=== PATIENT | male | born 1955 | race Caucasian/White ===

== ENCOUNTER 2018-12-27 18:29 | Emergency (ER) | payer MEDICARE, OTHER ==
[~2018-12-27] VITALS: Ht 160 cm; Wt 67.1 kg
--- NOTE | 2018-12-27 18:35 | NUR ---
Note treasurekeena in EDM - 12/27/18 at 1920 by DELMI Pt transferred to [place] [address] via [email or web address]. Pt is alert and answering questions appropriately. Family have left with pt guilelrmo. Family will drive to [place] to meet pt there.
--- NOTE | 2018-12-27 18:45 | ED Headache ---
General Stated Complaint: MIGRAINE Source: patient History of Present Illness Date Seen by Provider: Dec 27, 2018 Time Seen by Provider: 18:45 Initial Comments 63 yo M presenting with migraine headache that has been present since 6 am. He reports daily headaches but not every day does it get as severe as a Migraine. He does have Photosensitivity and phonophobia. He denies vomiting but states he has nausea that is controlled with phenergan he takes at home. He has medicine he takes at home for daily headaches but it is not helping his Migraine headache today. he reports when his headaches get this bad he usually has to come to clinic, UC or ED to get shots. He reports having to do this is a couple times a month usually. And then every few months or so he has to come to the ER for narcotic shot as well to help with a really severe migraine headache. He states that he seen neurology several times was as well as migraine specialist but is never found any different medications or management of his symptoms to control his headaches and migraines. He has a family history of migraine headaches as well. He feels that his headache today is a migraine headache for him and is a sharp stabbing pain primarily to the top of his head and some to the right occiput area. He denies having any fever or chills. He's had no neck pain. He also denies any other illness symptoms or abnormal symptoms about side of his typical migraine headache issues. Severity/Quality: constant, stabbing Prior Headaches/Recent Trauma: chronic headaches Modifying Factors: worse with exposure to light Associated Symptoms: No confusion; fatigue; No facial pain, No fever/chills, No flushing, No loss of consciousness; nausea/vomiting (nausea but no vomiting) ; No nasal congestion, No nasal drainage, No numbness in legs/feet, No rash, No seizures, No sinus infection, No stiff neck, No vision changes, No weakness Allergies and Home Medications Allergies Coded Allergies: topiramate (Verified Allergy, Unknown, 12/27/18) acetaminophen (Unverified Adverse Reaction, Mild, rash, 12/27/18) codeine (Unverified Adverse Reaction, Mild, Nausea and vomiting, 12/27/18) hydrocodone (Unverified Adverse Reaction, Mild, Nausea and vomiting, ) Patient Home Medication List Home Medication List Reviewed: Yes Review of Systems Review of Systems Constitutional: see HPI; No chills, No dizziness, No fever, No malaise Eyes: See HPI, Photophobia Ears, Nose, Mouth, Throat: see HPI; denies ear pain, denies ear discharge, denies nose pain, denies nose discharge, denies epistaxis, denies mouth swelling , denies loose teeth, denies throat pain Respiratory: no symptoms reported; No cough, No short of breath Cardiovascular: no symptoms reported; No chest pain, No palpitations Gastrointestinal: see HPI; No abdominal pain; nausea; No vomiting Genitourinary: no symptoms reported; No dysuria, No frequency Musculoskeletal: no symptoms reported Skin: No rash Psychiatric/Neurological: See HPI, Headache; Denies Numbness, Denies Paresthesia, Denies Seizure Past Bjhdkia-Bgeyoi-Erwoke Hx Past Med/Social Hx: Reviewed Nursing Past Med/Soc Hx Past Medical History Cardiac: Yes Hypertension Neurological: Yes (Hx of Subarachnoid) Headaches /Migraines, Traumatic Brain Injury (Subarachnoid) Physical Exam Vital Signs Vital Signs - First Documented 12/27/18 18:36 Temp 97.6 Pulse 67 Resp 20 B/P (MAP) 118/80 (93) Pulse Ox 98 O2 Delivery Room Air Capillary Refill : Height, Weight, BMI Height: '" Weight: lbs. oz. kg; BMI Method: General Appearance: WD/WN, no apparent distress HEENT: PERRL/EOMI, normal ENT inspection, TMs normal, pharynx normal Neck: non-tender, full range of motion, supple, normal inspection Cardiovascular: normal peripheral pulses, regular rate, rhythm, no murmur Respiratory: chest non-tender, lungs clear, normal breath sounds, no respiratory distress, no accessory muscle use Extremities: normal range of motion, non-tender Psychiatric: alert, oriented x 3, other (flat affect) Crainal Nerves: normal hearing, normal speech, PERRL Coordination/Gait: normal gait Motor/Sensory: no motor deficit, no sensory deficit Skin: normal color, warm/dry; No rash Progress/Results/Core Measures Results/Orders My Orders Orders - TIFFANIE BERUMEN MD Ketorolac Injection (Toradol Injection) (12/27/18 19:15) Diphenhydramine Injection (Benadryl Inje (12/27/18 19:15) Promethazine Injection (Phenergan Injec (12/27/18 19:15) Dexamethasone Injection (Decadron Inject (12/27/18 19:15) Fentanyl Injection (Sublimaze Injection (12/27/18 19:15) Medications Given in ED Current Medications Medications Dose Ordered Sig/Hao Route Start Time Stop Time Status Last Admin Dose Admin Dexamethasone Sodium Phosphate 10 mg ONCE ONCE IM 12/27/18 19:15 12/27/18 19:16 DC 12/27/18 19:32 10 MG Diphenhydramine HCl 50 mg ONCE ONCE IM 12/27/18 19:15 12/27/18 19:16 DC 12/27/18 19:33 50 MG Fentanyl Citrate 50 mcg ONCE ONCE IM 12/27/18 19:15 12/27/18 19:16 DC 12/27/18 19:31 50 MCG Ketorolac Tromethamine 60 mg ONCE ONCE IM 12/27/18 19:15 12/27/18 19:16 DC 12/27/18 19:32 60 MG Promethazine HCl 25 mg ONCE ONCE IM 12/27/18 19:15 12/27/18 19:16 DC 12/27/18 19:32 25 MG Vital Signs/I&O 12/27/18 12/27/18 18:36 19:50 Temp 97.6 97.5 Pulse 67 64 Resp 20 20 B/P (MAP) 118/80 (93) 120/94 (103) Pulse Ox 98 98 O2 Delivery Room Air Room Air Progress Progress Note : Time: 19:00 Progress Note Counseled pt on potential rebound headache with narcotic and opiods. will add in dexamethasone to hopefully mitigate that effect. Will try his typical cocktail of Toradol 60 mg, Benadryl 50 mg, Phenergan 25 mg all IM. Will add in a dose of Fentanyl 50 mg IM since we do not carry Nubain in the ED. Will also give Dexamethasone 10 mg IM to try and mitigate potential rebound headache from the Narcotic. Counseled to follow up with Dr. Christiansen for continued problems/concerns Departure Impression Primary Impression: Headache, chronic migraine without aura Qualified Codes: G43.719 - Chronic migraine without aura, intractable, without status migrainosus Disposition: 01 HOME, SELF-CARE Condition: Stable Departure-Patient Inst. Decision time for Depature: 19:25 Referrals: ADDIE CHRISTIANSEN MD (PCP/Family) Primary Care Physician Patient Instructions: Migraine Headache (DC) Add. Discharge Instructions: Follow up with Dr. Christiansen for continued concerns Rest in a cool dark room. TIFFANIE BERUMEN MD Dec 27, 2018 18:45
[2018-12-27] MEDS ORDERED: diphenhydrAMINE 50 MG/ML INJ (BENADRYL) IM ONE (19:15)
[2018-12-27] MEDS ORDERED: DEXAMETHASONE 10 MG/ML (DECADRON) 1 ML VIAL IM ONE (19:15)
[2018-12-27] MEDS ORDERED: KETOROLAC 60 MG/2 ML VIAL IM ONE (19:15)
[2018-12-27] MEDS ORDERED: PROMETHAZINE INJ 25 MG/ML (PHENERGAN) AMP IM ONE (19:15)
[2018-12-27] MEDS ORDERED: fentaNYL INJECTION 100 MCG/2 ML AMP IM ONE (19:15)
[2018-12-27 19:50] VITALS: BP 120/94
--- OUTSIDE RECORDS SUMMARY | 2018-12-27 20:14 | XMS REPORT | Continuity of Care Document ---
Author Organization Unknown Address Unknown Allergies There is no data. Medications There is no data. Problems There is no data. Procedures There is no data. Results There is no data. Encounters ACCT No. Visit Date/Time Discharge Status Pt. Type Provider Facility Loc./Unit Complaint [id number] 12/20/2018 17:10:00 12/20/2018 23:59:59 [facility] Outpatient ADDIE CHRISTIANSEN [facility] IN [facility]
== END 2018-12-27 19:50 | disposition home or self-care (01) ==
LOC: EDUNIT# 18:29 → ER FS 18:33
DX: G43.719 Chronic migraine without aura, intractable, without status migrainosus (principal); I10 Essential (primary) hypertension; Z87.820 Personal history of traumatic brain injury; Z88.8 Allergy status to other drugs, medicaments and biological substances; Z88.5 Allergy status to narcotic agent
CPT/HCPCS: 96372; 99284

== ENCOUNTER → 2018-12-31 | Outpatient (CLI) | payer MEDICARE, OTHER ==
--- NOTE | 2018-12-31 14:18 | Diagnostic Imaging Report ---
INDICATION: Left second finger AP, oblique, and lateral views of the left second finger are obtained. There is no definite acute fracture. There are degenerative changes in the interphalangeal joints. There is a calcification dorsal to the PIP joint which appears likely chronic. IMPRESSION: Chronic changes as above. No acute appearing bony abnormality. Dictated by: Dictated on workstation # [id number]
== END ==
LOC: RAD FS 14:02
PROVIDERS: ATTEND Nurse Practitioner
DX: M19.042 Primary osteoarthritis, left hand (principal)
CPT/HCPCS: 73140

== ENCOUNTER 2019-02-22 16:31 | Emergency (ER) | payer MEDICARE, OTHER ==
[~2019-02-22] VITALS: Ht 160 cm; Wt 63.5 kg
--- NOTE | 2019-02-22 16:31 | NUR ---
PT ARRIVAL TO ED AND REGISTERED. PT INSTRUCT TO WAIT IN WAITING ROOM WHILE E.R. ROOMS FULL. PT HAD NO C/O OF SMALL DELAY. PT REPORTS JUST NEEDING SHOTS LIKE LAST VISIT TO ER TO HELP MANAGE MIGRAINE.
--- OUTSIDE RECORDS SUMMARY | 2019-02-22 16:36 | XMS REPORT | Continuity of Care Document ---
Author Organization Unknown Address Unknown Allergies Active Description Code Type Severity Reaction Onset Reported/Identified Relationship to Patient Clinical Status Yes acetaminophen [id number] Drug Allergy Mild rash 12/27/2018 Yes codeine [id number] Drug Allergy Mild Nausea and vomi 12/27/2018 Yes hydrocodone [id number] Drug Allergy Mild Nausea and vomi 12/27/2018 Yes topiramate [id number] Drug Allergy Unknown N/A 12/27/2018 Medications There is no data. Problems Date Dx Coded Attending Type Code Diagnosis Diagnosed By 12/27/2018 TIFFANIE BERUMEN MD, Ot G43.719 CHRONIC MIGRAINE W/O AURA, INTRACTABLE, 12/27/2018 TIFFANIE BERMUEN MD, Ot G43.909 MIGRAINE, UNSP, NOT INTRACTABLE, WITHOUT 12/27/2018 TIFFANIE BERUMEN MD Ot I10 ESSENTIAL (PRIMARY) HYPERTENSION 12/27/2018 TIFFANIE BERUMEN MD, Ot Z87.820 PERSONAL HISTORY OF TRAUMATIC BRAIN INJU 12/27/2018 TIFFANIE BERUMEN MD, Ot Z88.5 ALLERGY STATUS TO NARCOTIC AGENT STATUS 12/27/2018 TIFFANIE BERUMEN MD, Ot Z88.8 ALLERGY STATUS TO OTH DRUG/MEDS/BIOL SUB 12/30/2018 TIFFANIE BERUMEN MD, Ot G43.719 CHRONIC MIGRAINE W/O AURA, INTRACTABLE, 12/30/2018 TIFFANIE BERUMEN MD, Ot G43.909 MIGRAINE, UNSP, NOT INTRACTABLE, WITHOUT 12/30/2018 TIFFANIE BERUMEN MD Ot I10 ESSENTIAL (PRIMARY) HYPERTENSION 12/30/2018 TIFFANIE BERUMEN MD, Ot Z87.820 PERSONAL HISTORY OF TRAUMATIC BRAIN INJU 12/30/2018 TIFFANIE BERUMEN MD, Ot Z88.5 ALLERGY STATUS TO NARCOTIC AGENT STATUS 12/30/2018 TIFFANIE BERUMEN MD, Ot Z88.8 ALLERGY STATUS TO OTH DRUG/MEDS/BIOL SUB 12/30/2018 TIFFANIE BERUMEN MD Ot G43.719 CHRONIC MIGRAINE W/O AURA, INTRACTABLE, 12/30/2018 TIFFANIE BERUMEN MD, Ot G43.909 MIGRAINE, UNSP, NOT INTRACTABLE, WITHOUT 12/30/2018 TIFFANIE BERUMEN MD, Ot I10 ESSENTIAL (PRIMARY) HYPERTENSION 12/30/2018 TIFFANIE BERUMEN MD, Ot Z87.820 PERSONAL HISTORY OF TRAUMATIC BRAIN INJU 12/30/2018 TIFFANIE BERUMEN MD, Ot Z88.5 ALLERGY STATUS TO NARCOTIC AGENT STATUS 12/30/2018 TIFFANIE BERUMEN MD, Ot Z88.8 ALLERGY STATUS TO OTH DRUG/MEDS/BIOL SUB 01/01/2019 RUSTY WYATT Ot M19.042 PRIMARY OSTEOARTHRITIS, LEFT HAND Procedures There is no data. Results There is no data. Encounters ACCT No. Visit Date/Time Discharge Status Pt. Type Provider Facility Loc./Unit Complaint [id number] 02/18/2019 18:40:00 02/18/2019 23:59:59 [facility] Outpatient ADDIE CHRISTIANSEN [facility] [id number] 12/31/2018 14:02:00 12/31/2018 23:59:59 CLS Outpatient RUSTY WYATT [facility] RAD FS [id number] 12/27/2018 18:33:00 12/27/2018 19:50:00 DIS Emergency TIFFANIE BREUMEN MD Via [facility] ER FS MIGRAINE
--- NOTE | 2019-02-22 16:55 | NUR ---
PT AWAITING ROOM AVAILABILTY, PCCT OBTAINING VITALS. PT [facility] HE NEEDS FOR CONTROL OF MIGRAINE. PT HAS BEEN IN ER PRIOR WITH MIGRAINE AND REPORTED THE CLINIC DOES NOT CARRY NARCOTICS.
--- NOTE | 2019-02-22 17:05 | NUR ---
PT BROUGHT AMBULATORY TO ED 2 TO BE SEEN BY ER PHYSICIAN. ROOM DARKENED.
[2019-02-22] MEDS ORDERED: diphenhydrAMINE 50 MG/ML INJ (BENADRYL) IM STA (17:45)
[2019-02-22] MEDS ORDERED: PROMETHAZINE INJ 25 MG/ML (PHENERGAN) AMP IM STA (17:45)
[2019-02-22] MEDS ORDERED: DEXAMETHASONE 10 MG/ML (DECADRON) 1 ML VIAL IM ONE (17:45)
[2019-02-22] MEDS ORDERED: KETOROLAC 60 MG/2 ML VIAL IM STA (17:45)
[2019-02-22] MEDS ORDERED: fentaNYL INJECTION 100 MCG/2 ML AMP IM STA (17:45)
--- NOTE | 2019-02-22 17:51 | ED Headache ---
General Chief Complaint: Head/Cervical Problems Stated Complaint: MIGRAINE Source: patient Exam Limitations: no limitations History of Present Illness Date Seen by Provider: Feb 22, 2019 Time Seen by Provider: 17:38 Initial Comments Here with report of migraine headache. He's describes this one as his ice pain That he doesn't get very often but does get occasionally. Has stabbing pain to the top left side of his head. It was in the same spot. He has tried a variety of his typical treatments and those have not work. Usually when they get this bad he has to come in for the cocktail here. That seems to involve Toradol, Benadryl, Phenergan and a dose of narcotic. Previous visit he had the addition of Decadron and fentanyl. He states on that visit he actually had the greatest length in relief and believes that it may be in the addition of the Decadron. Denies anything different with this headache. He has had multiple workups with neurology and has been at for evaluation for seizure disorder and it all seems to come back to migraine headaches. Does have some nausea but no vomiting and denies other concerns. Timing/Duration: 24 hours Severity/Quality: moderate, severe, sharp Location: frontal Prior Headaches/Recent Trauma: frequent headaches Modifying Factors: worse with exposure to light; improves with medication Associated Symptoms: No confusion, No facial pain, No fever/chills, No nasal congestion, No seizures, No sinus infection, No vision changes, No weakness Allergies and Home Medications Allergies Coded Allergies: topiramate (Verified Allergy, Unknown, 12/27/18) acetaminophen (Unverified Adverse Reaction, Mild, rash, 12/27/18) codeine (Unverified Adverse Reaction, Mild, Nausea and vomiting, 12/27/18) hydrocodone (Unverified Adverse Reaction, Mild, Nausea and vomiting, 12/27/18) Patient Home Medication List Home Medication List Reviewed: Yes Review of Systems Review of Systems Constitutional: see HPI; No chills, No fever Eyes: Denies Blindness; Photophobia Ears, Nose, Mouth, Throat: no symptoms reported Respiratory: no symptoms reported Cardiovascular: no symptoms reported Gastrointestinal: nausea; No vomiting Genitourinary: no symptoms reported Psychiatric/Neurological: See HPI All Other Systems Reviewed Negative Unless Noted: Yes Past Nttrsxd-Ymjjla-Txfuxw Hx Past Med/Social Hx: Reviewed Nursing Past Med/Soc Hx Patient Social History Alcohol Use: Denies Use Recreational Drug Use: No Smoking Status: Never a Smoker Recent Foreign Travel: No Contact w/Someone Who Travel: No Recent Hopitalizations: No Immunizations Up To Date Date of Influenza Vaccine: May 16, 2018 Seasonal Allergies Seasonal Allergies: Yes Past Medical History Surgeries: Yes (heart cath, colonoscopy) Respiratory: Yes Asthma, Sleep Apnea Cardiac: Yes Hypertension Neurological: Yes (Hx of Subarachnoid) Headaches /Migraines, Traumatic Brain Injury Genitourinary: No Gastrointestinal: No Musculoskeletal: No Endocrine: No HEENT: No Cancer: No Psychosocial: No Integumentary: No Blood Disorders: No Family Medical History Reviewed Nursing Family Hx Physical Exam Vital Signs Capillary Refill : Height, Weight, BMI Height: 5'3.00" Weight: 148lbs. oz. 67.196396cj; BMI Method:Stated General Appearance: WD/WN, no apparent distress HEENT: PERRL/EOMI, pharynx normal Neck: full range of motion, supple Cardiovascular: regular rate, rhythm, no murmur Respiratory: lungs clear, normal breath sounds Gastrointestinal: non tender, soft Back: normal inspection, no CVA tenderness, no vertebral tenderness Extremities: non-tender, normal inspection Psychiatric: alert, oriented x 3 Crainal Nerves: normal hearing, normal speech, PERRL Coordination/Gait: normal gait Motor/Sensory: no motor deficit, no sensory deficit Skin: normal color, warm/dry Progress/Results/Core Measures Results/Orders My Orders Orders - HUMBLE LERMA MD Diphenhydramine Injection (Benadryl Inje (02/22/19 17:45) Fentanyl Injection (Sublimaze Injection (02/22/19 17:45) Ketorolac Injection (Toradol Injection) (02/22/19 17:45) Promethazine Injection (Phenergan Injec (02/22/19 17:45) Dexamethasone Injection (Decadron Inject (02/22/19 17:45) Progress Progress Note : Progress Note Seen and evaluated. I have reviewed patient's previous history and talked with him at length regarding his typical cocktail. We did discuss the pros and cons of narcotics including rebound and possibility for further adverse effects such as addiction. He does not have to do this often but it is effective. Given the effectiveness and the frequency, I will go ahead and give Benadryl 50 mg IM, Toradol 60 mg IM, Phenergan 25 mg IM, Decadron 10 mg IM and fentanyl 50 g IM. He has requested IM versus IV which is think is reasonable. He states this is a very effective cocktail. Monitor patient. Discharged home with return precautions. Patient verbalize understanding instructions and agreement with plan. Departure Impression Primary Impression: Migraine Qualified Codes: G43.009 - Migraine without aura, not intractable, without status migrainosus Disposition: HOME, SELF-CARE Condition: Improved Departure-Patient Inst. Decision time for Depature: 18:15 Referrals: ADDIE CHRISTIANSEN MD (PCP/Family) Primary Care Physician Patient Instructions: Migraine Headache (DC) Add. Discharge Instructions: All discharge instructions reviewed with patient and/or family. Voiced understanding. Continue home medications as previously prescribed. Follow-up with Dr. Christiansen this week for recheck and further evaluation. Return for worse pain, fever, vomiting, weakness, breathing problems or other concerns as needed. Copy Copies To 1: ADDIE CHRISTIANSEN MD, TIMOTHY D MD Feb 22, 2019 17:51
--- NOTE | 2019-02-22 18:10 | NUR ---
TO ROOM TO DISCUSS MEDS ORDERED AND PREPARE TO ADMINISTER.
[2019-02-22 18:22] VITALS: BP 120/79
--- NOTE | 2019-02-22 18:22 | NUR ---
PT DISCHARGED TO HOME AFTER REVIEW OF HOME INSTRUCTIONS VERBALIZED UNDERSTOOD. PRESENT TO DRIVE PT.
== END 2019-02-22 18:22 | disposition home or self-care (01) ==
LOC: EDUNIT# 16:31 → ER FS 16:32
DX: G43.909 Migraine, unspecified, not intractable, without status migrainosus (principal); J45.909 Unspecified asthma, uncomplicated; G47.30 Sleep apnea, unspecified; I10 Essential (primary) hypertension; Z87.820 Personal history of traumatic brain injury; Z88.8 Allergy status to other drugs, medicaments and biological substances; Z88.5 Allergy status to narcotic agent
CPT/HCPCS: 96372; 99284

== ENCOUNTER 2019-03-28 18:27 | Emergency (ER) | payer MEDICARE, OTHER ==
[~2019-03-28] VITALS: Ht 160 cm; Wt 62.6 kg
[2019-03-28] MEDS ORDERED: ONDANSETRON 4 MG/2 ML (SDV) Z0FRAN ONE (18:28)
--- OUTSIDE RECORDS SUMMARY | 2019-03-28 18:32 | XMS REPORT | Continuity of Care Document ---
Author Organization Unknown Address Unknown Allergies Active Description Code Type Severity Reaction Onset Reported/Identified Relationship to Patient Clinical Status Yes acetaminophen [id number] Drug Allergy Mild rash 12/27/2018 Yes codeine [id number] Drug Allergy Mild Nausea and vomi 12/27/2018 Yes hydrocodone [id number] Drug Allergy Mild Nausea and vomi 12/27/2018 Yes topiramate [id number] Drug Allergy Unknown N/A 12/27/2018 Medications There is no data. Problems Date Dx Coded Attending Type Code Diagnosis Diagnosed By 12/27/2018 TIFFANIE BERUMEN MD, Ot G43.719 CHRONIC MIGRAINE W/O AURA, INTRACTABLE, 12/27/2018 TIFFANIE BERUMEN MD, Ot G43.909 MIGRAINE, UNSP, [...] MIGRAINE W/O AURA, INTRACTABLE, 12/30/2018 TIFFANIE BERUMEN MD Ot G43.909 MIGRAINE, UNSP, NOT INTRACTABLE, WITHOUT 12/30/2018 TIFFANIE BERUMEN MD Ot I10 ESSENTIAL (PRIMARY) HYPERTENSION 12/30/2018 TIFFANIE BERUMEN MD Ot Z87.820 PERSONAL HISTORY OF TRAUMATIC BRAIN INJU 12/30/2018 TIFFANIE BERUMEN MD Ot Z88.5 ALLERGY STATUS TO NARCOTIC AGENT STATUS 12/30/2018 TIFFANIE BERUMEN MD Ot Z88.8 ALLERGY STATUS TO OTH DRUG/MEDS/BIOL SUB 01/01/2019 RUSTY WYATT Ot M19.042 PRIMARY OSTEOARTHRITIS, LEFT HAND 02/22/2019 HUMBLE LERMA MD Ot G43.909 MIGRAINE, UNSP, NOT INTRACTABLE, WITHOUT 02/22/2019 HUMBLE LERMA MD Ot G47.30 SLEEP APNEA, UNSPECIFIED 02/22/2019 HUMBLE LERMA MD Ot I10 ESSENTIAL (PRIMARY) HYPERTENSION 02/22/2019 HUMBLE LERMA MD Ot J45.909 UNSPECIFIED ASTHMA, UNCOMPLICATED 02/22/2019 HUMBLE LERMA MD Ot Z87.820 PERSONAL HISTORY OF TRAUMATIC BRAIN INJU 02/22/2019 HUMBLE LERMA MD Ot Z88.5 ALLERGY STATUS TO NARCOTIC AGENT STATUS 02/22/2019 HUMBLE LERMA MD Ot Z88.8 ALLERGY STATUS TO OTH DRUG/MEDS/BIOL SUB 02/22/2019 RUSTY WYATT Ot M19.042 PRIMARY OSTEOARTHRITIS, LEFT HAND 02/25/2019 HUMBLE LERMA MD Ot G43.909 MIGRAINE, UNSP, NOT INTRACTABLE, WITHOUT 02/25/2019 HUMBLE LERMA MD Ot G47.30 SLEEP APNEA, UNSPECIFIED 02/25/2019 HUMBLE LERMA MD Ot I10 ESSENTIAL (PRIMARY) HYPERTENSION 02/25/2019 HUMBLE LERMA MD Ot J45.909 UNSPECIFIED ASTHMA, UNCOMPLICATED 02/25/2019 HUMBLE LERMA MD Ot Z87.820 PERSONAL HISTORY OF TRAUMATIC BRAIN INJU 02/25/2019 HUMBLE LERMA MD Ot Z88.5 ALLERGY STATUS TO NARCOTIC AGENT STATUS 02/25/2019 HUMBLE LERMA MD Ot Z88.8 ALLERGY STATUS TO OTH DRUG/MEDS/BIOL SUB 02/25/2019 HUMBLE LERMA MD Ot G43.909 MIGRAINE, UNSP, NOT INTRACTABLE, WITHOUT 02/25/2019 HUMBLE LERMA MD Ot G47.30 SLEEP APNEA, UNSPECIFIED 02/25/2019 HUMBLE LERMA MD Ot I10 ESSENTIAL (PRIMARY) HYPERTENSION 02/25/2019 HUMBLE LERMA MD Ot J45.909 UNSPECIFIED ASTHMA, UNCOMPLICATED 02/25/2019 HUMBLE LERMA MD Ot Z87.820 PERSONAL HISTORY OF TRAUMATIC BRAIN INJU 02/25/2019 HUMBLE LERMA MD Ot Z88.5 ALLERGY STATUS TO NARCOTIC AGENT STATUS 02/25/2019 HUMBLE LERMA MD Ot Z88.8 ALLERGY STATUS TO OTH DRUG/MEDS/BIOL SUB 02/28/2019 HUMBLE LERMA MD Ot G43.909 MIGRAINE, UNSP, NOT INTRACTABLE, WITHOUT 02/28/2019 HUMBLE LERMA MD Ot G47.30 SLEEP APNEA, UNSPECIFIED 02/28/2019 HUMBLE LERMA MD Ot I10 ESSENTIAL (PRIMARY) HYPERTENSION 02/28/2019 HUMBLE LERMA MD Ot J45.909 UNSPECIFIED ASTHMA, UNCOMPLICATED 02/28/2019 HUMBLE LERMA MD Ot Z87.820 PERSONAL HISTORY OF TRAUMATIC BRAIN INJU 02/28/2019 HUMBLE LERMA MD Ot Z88.5 ALLERGY STATUS TO NARCOTIC AGENT STATUS 02/28/2019 HUMBLE LERMA MD Ot Z88.8 ALLERGY STATUS TO OTH DRUG/MEDS/BIOL SUB Procedures There is no data. Results There is no data. Encounters ACCT No. Visit Date/Time Discharge Status Pt. Type Provider Facility Loc./Unit Complaint [id number] 03/25/2019 16:10:00 ACT Outpatient ЕЛЕНА ADDIE M [facility] IN [facility] [id number] 02/22/2019 16:32:00 02/22/2019 18:22:00 DIS Emergency HUMBLE LERMA MD Via [facility] ER FS MIGRAINE [id number] 12/31/2018 14:02:00 12/31/2018 23:59:59 CLS Outpatient RUSTY WYATT Via [facility] RAD FS M79.645 [id number] 12/27/2018 18:33:00 12/27/2018 19:50:00 DIS Emergency JAMAICA ARNOLD, TIFFANIE Ivy Via [facility] ER FS MIGRAINE
--- NOTE | 2019-03-28 18:33 | ED Fall/Injury ---
General Stated Complaint: FALL Source: patient, family Exam Limitations: no limitations History of Present Illness Date Seen by Provider: Mar 28, 2019 Time Seen by Provider: 18:19 Initial Comments Patient presents to ER by private conveyance with chief complaint of fall while walking on the sidewalk out front of his house. He says he tripped. He did not lose consciousness. He struck his nose and knocked tooth out of his partial area and he does not think he knocked any of his ekwok teeth out. He's having a bloody nose. He is not on blood thinners and he does use oxycodone for him back pain and migraines that he gets weekly. He has a history of a subarachnoid hemorrhage idiopathic. He is having no vision problems. No pain anywhere else. Mild nausea but no vomiting. Allergies and Home Medications Allergies Coded Allergies: topiramate (Verified Allergy, Unknown, 12/27/18) acetaminophen (Unverified Adverse Reaction, Mild, rash, 12/27/18) codeine (Unverified Adverse Reaction, Mild, Nausea and vomiting, 12/27/18) hydrocodone (Unverified Adverse Reaction, Mild, Nausea and vomiting, 12/27/18) Patient Home Medication List Home Medication List Reviewed: Yes Review of Systems Review of Systems Constitutional: No chills, No fever Eyes: Denies Blindness, Denies Blurred Vision, Denies Drainage Ears, Nose, Mouth, Throat: see HPI; denies ear pain, denies ear discharge; epistaxis Respiratory: No cough, No short of breath Cardiovascular: No chest pain, No edema Gastrointestinal: No abdominal pain, No constipation, No diarrhea Genitourinary: No discharge, No dysuria Musculoskeletal: No back pain, No joint pain Past Ainxaqb-Vgqkfj-Ehcjww Hx Patient Social History Recent Hopitalizations: No Immunizations Up To Date Date of Influenza Vaccine: May 16, 2018 Seasonal Allergies Seasonal Allergies: Yes Past Medical History Surgeries: Yes (heart cath, colonoscopy) Respiratory: Yes Asthma, Sleep Apnea Cardiac: Yes Hypertension Neurological: Yes (Hx of Subarachnoid) Headaches /Migraines, Traumatic Brain Injury Genitourinary: No Gastrointestinal: No Musculoskeletal: No Endocrine: No HEENT: No Cancer: No Psychosocial: No Integumentary: No Blood Disorders: No Physical Exam Vital Signs Vital Signs - First Documented 03/28/19 18:30 Temp 98.6 Pulse 98 Resp 18 B/P (MAP) 156/71 (99) Pulse Ox 98 Capillary Refill : Height, Weight, BMI Height: 5'3.00" Weight: 140lbs. oz. 63.482866fz; BMI Method:Stated General Appearance: WD/WN, mild distress HEENT: PERRL/EOMI, TMs normal, other (epistaxis) Neck: non-tender, full range of motion Cardiovascular: normal peripheral pulses, regular rate, rhythm Respiratory: lungs clear, normal breath sounds, no respiratory distress, no accessory muscle use Peripheral Pulses: 2+ Radial Pulses (R), 2+ Radial Pulses (L) Neurologic/Psychiatric: canvas baster II-XII nml as tested, no motor/sensory deficits, alert, normal mood/affect, oriented x 3 Skin: normal color, warm/dry, other (minor one and a half centimeter superf icial skin tear on the bridge of the nose.) [place] Coma Score Best Eye Response: (4) Open Spontaneously Best Verbal Response: (5) Oriented Best Motor Response: (6) Obeys Commands [place] Total: 15 Progress/Results/Core Measures Results/Orders My Orders Orders - JESSE RAMIREZ Oxymetazoline 0.05% Nasal [place] (Afrin 0. (03/28/19 21:00) Iv Heplock-Insert (Order) (03/28/19 18:33) Ondansetron Injection (Zofran Injectio (03/28/19 18:45) Ondansetron Injection (Zofran Injectio (03/28/19 18:28) Medications Given in ED Current Medications Medications Dose Ordered Sig/Hao Route Start Time Stop Time Status Last Admin Dose Admin Ondansetron HCl 4 mg ONCE ONCE IVP 03/28/19 18:45 03/28/19 18:46 DC 03/28/19 18:37 4 MG Vital Signs/I&O 03/28/19 18:30 Temp 98.6 Pulse 98 Resp 18 B/P (MAP) 156/71 (99) Pulse Ox 98 Progress Progress Note #1: Time: 18:33 Progress Note Oxymetazoline and direct pressure for his epistaxis. Zofran for his nausea. We discussed imaging versus observation the patient is very against doing imaging at this time. We discussed appropriate return precautions. The patient and his daughter have declined a tetanus vaccine at this time. Progress Note #2: Time: 19:24 Progress Note With application of direct pressure and 2 applications of oxymetazoline the patient's bleeding has pretty much stopped. The does appear to be high and anterior in the nose. We discussed packing versus continuing oxymetazoline the patient thinks that he will be fine with the spray. Departure Impression Primary Impression: Fall (on)(from) sidewalk curb, initial encounter Additional Impressions: Epistaxis due to trauma Skin tear Disposition: HOME, SELF-CARE Condition: Stable Departure-Patient Inst. Decision time for Depature: 19:24 Referrals: ADDIE CHRISTIANSEN MD (PCP/Family) Primary Care Physician Patient Instructions: Head Injury Observation (DC), Nosebleeds Add. Discharge Instructions: If your nosebleed returns apply 4 sprays of oxymetazoline up each nostril and applied direct pressure for 20-40 minutes without putting anything up your nose or checking. Do not blow your nose or clear your nose for the next 24 hours. If you're unable to get your nose to stop bleeding despite this then you may return to the ER for further management. If you experience nausea you may take one tablet of Phenergan as directed every 6 hours. Please observe the patient for the next 12 hours and if he has any difficulty walking, talking, making sense, visual changes or other concerns please return to the ER for further evaluation. JESSE RAMIREZ Mar 28, 2019 18:33
[2019-03-28] MEDS ORDERED: ONDANSETRON 4 MG/2 ML (SDV) Z0FRAN IVP ONE (18:45)
[2019-03-28 19:26] VITALS: BP 141/83
[2019-03-28] MEDS ORDERED: OXYMETAZOLINE (AFRIN) 0.05% NA 15 ML BTL SCH (21:00)
== END 2019-03-28 19:32 | disposition home or self-care (01) ==
LOC: EDUNIT# 18:27 → ER FS 18:28
DX: S01.20XA Unspecified open wound of nose, initial encounter (principal); R04.0 Epistaxis; G43.909 Migraine, unspecified, not intractable, without status migrainosus; J45.909 Unspecified asthma, uncomplicated; G47.30 Sleep apnea, unspecified; I10 Essential (primary) hypertension; R40.2142 Coma scale, eyes open, spontaneous, at arrival to emergency department; R40.2252 Coma scale, best verbal response, oriented, at arrival to emergency department; R40.2362 Coma scale, best motor response, obeys commands, at arrival to emergency department; Z87.820 Personal history of traumatic brain injury; Z88.8 Allergy status to other drugs, medicaments and biological substances; Z88.5 Allergy status to narcotic agent; W10.1XXA Fall (on)(from) sidewalk curb, initial encounter; Y93.01 Activity, walking, marching and hiking
CPT/HCPCS: 96374

== ENCOUNTER 2019-03-29 16:25 | Emergency (ER) | payer MEDICARE, OTHER ==
[~2019-03-29] VITALS: Ht 160 cm; Wt 62.6 kg
--- NOTE | 2019-03-29 16:33 | ED General ---
General Stated Complaint: FACE INJ, CONFUSION History of Present Illness Date Seen by Provider: Mar 29, 2019 Time Seen by Provider: 16:33 Initial Comments Patient presents emergency department for evaluation of multiple complaints including confusion and left facial and hand numbness. The confusion started earlier today while he was at work as he says he could not remember what city he lives in or what state he was in and then he said he went to go find his car after work and he could not remember where he parked his car. He said at approximately 3:00 he had 30 minutes worth of left facial and hand numbness and that he says he is walking with a somewhat abnormal gait. He says that he has not had any vision changes weakness or pain. He says that he has a history of a subarachnoid hemorrhage as well as an aneurysm. He says he takes a baby aspirin daily. He was here yesterday after sustaining a mechanical trip and fall and hit his head and nose. CT imaging was recommended but he says he was in a hurry to leave and went on home. He refused a tetanus shot at that time and he continues to refuse a tetanus shot. He is in no obvious distress with normal vital signs. Allergies and Home Medications Allergies Coded Allergies: topiramate (Verified Allergy, Unknown, 12/27/18) acetaminophen (Unverified Adverse Reaction, Mild, rash, 12/27/18) codeine (Unverified Adverse Reaction, Mild, Nausea and vomiting, 12/27/18) hydrocodone (Unverified Adverse Reaction, Mild, Nausea and vomiting, 12/27/18) Patient Home Medication List Home Medication List Reviewed: Yes Review of Systems Review of Systems Constitutional: no symptoms reported EENTM: nose pain Respiratory: no symptoms reported Cardiovascular: no symptoms reported Gastrointestinal: no symptoms reported Genitourinary: no symptoms reported Musculoskeletal: no symptoms reported Skin: no symptoms reported Psychiatric/Neurological: Headache, Numbness, Paresthesia All Other Systems Reviewed Negative Unless Noted: Yes Past Vruezws-Wvbaet-Bboyaz Hx Patient Social History 2nd Hand Smoke Exposure: No Recent Foreign Travel: No Contact w/Someone Who Travel: No Recent Hopitalizations: No Immunizations Up To Date Date of Influenza Vaccine: May 16, 2018 Seasonal Allergies Seasonal Allergies: Yes Past Medical History Surgeries: Yes (heart cath, colonoscopy) Respiratory: Yes Asthma, Sleep Apnea Cardiac: Yes Hypertension Neurological: Yes (Hx of Subarachnoid) Headaches /Migraines, Traumatic Brain Injury Genitourinary: No Gastrointestinal: No Musculoskeletal: No Endocrine: No HEENT: No Cancer: No Psychosocial: No Integumentary: No Blood Disorders: No Physical Exam Vital Signs Vital Signs - First Documented 03/29/19 16:34 Temp 97.3 Pulse 67 Resp 15 B/P (MAP) 147/93 (111) Pulse Ox 94 O2 Delivery Room Air Capillary Refill : Height, Weight, BMI Height: 5'3.00" Weight: 138lbs. oz. 62.435315gy; BMI Method:Stated General Appearance: No Apparent Distress, WD/WN HEENT: PERRL/EOMI, Other (no septal hematoma) Neck: Full Range of Motion, Non Tender Respiratory: No Respiratory Distress Cardiovascular: Regular Rate, Rhythm Gastrointestinal: Non Tender, Soft Back: Normal Inspection Extremity: Normal Capillary Refill, Normal Inspection Neurologic/Psychiatric: Alert, Oriented x3, No Motor/Sensory Deficits, tool maker bench II- XII Norm as Tested Skin: Normal Color, Warm/Dry Progress/Results/Core Measures Suspected Sepsis SIRS Temperature: Pulse: Respiratory Rate: Laboratory Tests 03/29/19 16:49: White Blood Count 6.3 Blood Pressure / Mean: Laboratory Tests 03/29/19 16:49: Creatinine 1.15, INR Comment 1.0, Platelet Count 229, Total Bilirubin 0.2 Results/Orders Lab Results Laboratory Tests Test 03/29/19 16:49 03/29/19 16:59 Range/Units White Blood Count 6.3 4.3-11.0 10^3/uL Red Blood Count 4.25 L 4.35-5.85 10^6/uL Hemoglobin 13.1 L 13.3-17.7 G/DL Hematocrit 38 L 40-54 % Mean Corpuscular Volume 90 80-99 FL Mean Corpuscular Hemoglobin 31 25-34 PG Mean Corpuscular Hemoglobin Concent 34 32-36 G/DL Red Cell Distribution Width 13.6 10.0-14.5 % Platelet Count 229 130-400 10^3/uL Mean Platelet Volume 9.4 7.4-10.4 FL Neutrophils (%) (Auto) 49 42-75 % Lymphocytes (%) (Auto) 35 12-44 % Monocytes (%) (Auto) 10 0-12 % Eosinophils (%) (Auto) 4 0-10 % Basophils (%) (Auto) 1 0-10 % Neutrophils # (Auto) 3.1 1.8-7.8 X 10^3 Lymphocytes # (Auto) 2.2 1.0-4.0 X 10^3 Monocytes # (Auto) 0.6 0.0-1.0 X 10^3 Eosinophils # (Auto) 0.3 0.0-0.3 10^3/uL Basophils # (Auto) 0.1 0.0-0.1 10^3/uL Prothrombin Time 13.6 12.2-14.7 SEC INR Comment 1.0 0.8-1.4 Activated Partial Thromboplast Time 28 24-35 SEC Sodium Level 141 135-145 MMOL/L Potassium Level 3.7 3.6-5.0 MMOL/L Chloride Level 101 98-107 MMOL/L Carbon Dioxide Level 27 21-32 MMOL/L Anion Gap 13 5-14 MMOL/L Blood Urea Nitrogen 23 H 7-18 MG/DL Creatinine 1.15 0.60-1.30 MG/DL Estimat Glomerular Filtration Rate > 60 BUN/Creatinine Ratio 20 Glucose Level 133 H 70-105 MG/DL Calcium Level 9.3 8.5-10.1 MG/DL Corrected Calcium 9.1 8.5-10.1 MG/DL Magnesium Level 2.1 1.8-2.4 MG/DL Total Bilirubin 0.2 0.1-1.0 MG/DL Aspartate Amino Transf (AST/SGOT) 26 5-34 U/L Alanine Aminotransferase (ALT/SGPT) 18 0-55 U/L Alkaline Phosphatase 58 40-136 U/L Troponin I < 0.30 <0.30 NG/ML Total Protein 6.5 6.4-8.2 GM/DL Albumin 4.2 3.2-4.5 GM/DL Serum Alcohol < 10 <10 MG/DL Urine Color YELLOW Urine Clarity CLEAR Urine pH 7.0 5-9 Urine Specific Brooks 1.015 L 1.016-1.022 Urine Protein NEGATIVE NEGATIVE Urine Glucose (UA) NEGATIVE NEGATIVE Urine Ketones NEGATIVE NEGATIVE Urine Nitrite NEGATIVE NEGATIVE Urine Bilirubin NEGATIVE NEGATIVE Urine Urobilinogen 0.2 NORMAL MG/DL Urine Leukocyte Esterase NEGATIVE NEGATIVE Urine RBC (Auto) NEGATIVE NEGATIVE Urine RBC NONE /HPF Urine WBC NONE /HPF Urine Squamous Epithelial Cells RARE /HPF Urine Crystals PRESENT H /LPF Urine Amorphous Sediment RARE MANUEL PHOSPHATE H /LPF Urine Bacteria NEGATIVE /HPF Urine Casts NONE /LPF Urine Mucus NONE /LPF Urine Culture Indicated NO Urine Opiates Screen NEGATIVE NEGATIVE Urine Oxycodone Screen POSITIVE H NEGATIVE Urine Methadone Screen NEGATIVE NEGATIVE Urine Propoxyphene Screen NEGATIVE NEGATIVE Urine Barbiturates Screen NEGATIVE NEGATIVE Ur Tricyclic Antidepressants Screen NEGATIVE NEGATIVE Urine Phencyclidine Screen NEGATIVE NEGATIVE Urine Amphetamines Screen NEGATIVE NEGATIVE Urine Methamphetamines Screen NEGATIVE NEGATIVE Urine Benzodiazepines Screen NEGATIVE NEGATIVE Urine Cocaine Screen NEGATIVE NEGATIVE Urine Cannabinoids Screen NEGATIVE NEGATIVE My Orders Orders - GALINA RUIZ DO Cbc With Automated Diff (03/29/19 16:40) Comprehensive Metabolic Panel (03/29/19 16:40) Alcohol (03/29/19 16:40) Drug Screen Stat (Urine) (03/29/19 16:40) Magnesium (03/29/19 16:40) Partial Thromboplastin Time (03/29/19 16:40) Protime With Inr (03/29/19 16:40) Troponin I (03/29/19 16:40) Ua Culture If Indicated (03/29/19 16:40) Ekg Tracing (03/29/19 16:40) Ct Head/Cervical Spine Wo (03/29/19 16:40) Promethazine Injection (Phenergan Injec (03/29/19 17:30) Diphenhydramine Injection (Benadryl Inje (03/29/19 17:30) Ketorolac Injection (Toradol Injection) (03/29/19 17:30) Dexamethasone Injection (Decadron Inject (03/29/19 17:30) Medications Given in ED Current Medications Medications Dose Ordered Sig/Hao Route Start Time Stop Time Status Last Admin Dose Admin Dexamethasone Sodium Phosphate 10 mg ONCE ONCE IV 03/29/19 17:30 03/29/19 17:31 DC 03/29/19 17:36 10 MG Diphenhydramine HCl 50 mg ONCE ONCE IVP 03/29/19 17:30 03/29/19 17:31 DC 03/29/19 17:35 50 MG Ketorolac Tromethamine 15 mg ONCE ONCE IVP 03/29/19 17:30 03/29/19 17:31 DC 03/29/19 17:35 15 MG Promethazine HCl 25 mg ONCE ONCE IVP 03/29/19 17:30 03/29/19 17:31 DC 03/29/19 17:36 25 MG Vital Signs/I&O 03/29/19 16:34 Temp 97.3 Pulse 67 Resp 15 B/P (MAP) 147/93 (111) Pulse Ox 94 O2 Delivery Room Air Capillary Refill : Progress Note : Progress Note Patient presenting to emergency department for evaluation of confusion with some neurologic changes. Will check labs and imaging and reassess. Workup negative for acute process is his head and cervical spine CT showed no acute findings. Blood and urinalysis is negative for acute findings as well. presented and gave additional information that this is very typical for him when he has a migraine he gets complex symptoms and has forgetfulness in addition to random neurologic complaints such as numbness. Patient is receiving a migraine cocktail and is confusion is improving. I recommended that we observe him here or transfer him to another facility so he could be monitored for a longer period of time to ensure that he returns to baseline. Family refused stating that this is exactly the same as prior migraine headaches and reassured me that they are not concerned with his symptoms at all. They said that they generally go to [facility] if he has any concerning neurologic signs or symptoms but they are not concerned at this time. He will be discharged in stable condition told to follow with primary care provider within 2-3 days and come back to the ED sooner with any worsening pain neurologic changes or other general concerns. Patient and are aware and agreeable with plan for discharge and verbalized understanding of the above instructions. Diagnostic Imaging Comments CT HEAD/CERVICAL SPINE WO PROCEDURE: CT head and CT cervical spine without contrast. TECHNIQUE: Multiple contiguous axial images were obtained through the brain and cervical spine without the use of intravenous contrast. Sagittal and coronal reformations through the cervical spine were then performed. Auto Exposure Controls were utilized during the CT exam to meet ALARA standards for radiation dose reduction. INDICATION: Head and neck trauma, memory loss. COMPARISON: None. FINDINGS: CT head: Ventricles are normal in size, shape, and position. There is no midline shift or mass effect. There is no hemorrhage or evidence of acute ischemia. No extra-axial fluid collection is seen. There is no cerebral edema. There is no skull fracture. Visualized paranasal sinuses demonstrate hyperdense air-fluid levels. However, no obvious facial fracture is seen on this series. This could be chronic sinusitis. Please correlate clinically. The mastoids are clear. IMPRESSION: 1. No acute intracranial abnormalities. 2. Hyperdense fluid within the maxillary sinuses could be secondary to hemorrhage of unknown source and/or sinus disease. No obvious acute facial fracture is seen on this series. CT cervical spine: There is straightening of the normal lordotic cervical curvature. Otherwise, no traumatic malalignment or fracture is identified. There is iroe-qu-zrcfgomy diffuse degenerative disc disease and facet joint arthropathy. No osseous lesion is present. Bilateral carotid atherosclerosis is present. There is no paraspinous mass. IMPRESSION: 1. No traumatic malalignment or fracture. 2. Carotid artery atherosclerosis. Dictated on workstation # [id number] Dict: 03/29/19 1717 Trans: 03/29/19 1730 [id number] Interpreted by: MARNIE SOLIS Electronically signed by: Departure Impression Primary Impression: Headache Additional Impressions: Acute encephalopathy Facial paresthesia Left hand paresthesia Disposition: 01 HOME, SELF-CARE Condition: Stable Departure-Patient Inst. Referrals: ADDIE CHRISTIANSEN MD (PCP/Family) Primary Care Physician Patient Instructions: Headache, Adult GALINA RUIZ DO Mar 29, 2019 16:33
--- OUTSIDE RECORDS SUMMARY | 2019-03-29 16:34 | XMS REPORT | Continuity of Care Document ---
Author Organization Unknown Address Unknown Allergies Active Description Code Type Severity Reaction Onset Reported/Identified Relationship to Patient Clinical Status Yes acetaminophen [id number] Drug Allergy Mild rash 12/27/2018 Yes codeine [id number] Drug Allergy Mild Nausea and vomi 12/27/2018 Yes hydrocodone [id number] Drug Allergy Mild Nausea and vomi 12/27/2018 Yes topiramate [id number] Drug Allergy Unknown N/A 12/27/2018 Medications There [...] Status Pt. Type Provider Facility Loc./Unit Complaint [id number] 03/25/2019 16:10:00 03/25/2019 23:59:59 [facility] Outpatient ADDIE CHRISTIANSEN [facility] [id number] 03/28/2019 18:28:00 03/28/2019 19:32:00 DIS Emergency JAMES ARNOLD, JESSE Davies [facility] ER FS FALL [id number] 02/22/2019 16:32:00 02/22/2019 18:22:00 DIS Emergency MARIA GUADALUPE ARNOLD, HUMBLE Saha [facility] ER FS MIGRAINE [id number] 12/31/2018 14:02:00 12/31/2018 23:59:59 CLS Outpatient RUSTY WYATT [facility] RAD FS [id number] 12/27/2018 18:33:00 12/27/2018 19:50:00 DIS Emergency JAMAICA ARNOLD, TIFFANIE Ivy [facility] ER FS MIGRAINE [id number] 03/29/2019 16:29:00 ACT Emergency GALINA RUIZ DO [facility] ER FS FACE INJ, CONFUSION
[2019-03-29 16:58] LABS: HEMATOCRIT 38 % (40-54); HEMOGLOBIN 13.1 G/DL (13.3-17.7); MEAN CORPUSCULAR HEMOGLOBIN 31 PG (25-34); MEAN CORPUSCULAR HGB CONC 34 G/DL (32-36); MEAN CORPUSCULAR VOLUME 90 FL (80-99); MEAN PLATELET VOLUME 9.4 FL (7.4-10.4); PLATELET COUNT 229 10^3/uL (130-400); RED CELL DISTRIBUTION WIDTH 13.6 % (10.0-14.5); WHITE BLOOD COUNT 6.3 10^3/uL (4.3-11.0)
[2019-03-29 16:59] LABS: BASOPHILS # (AUTO) 0.1 10^3/uL (0.0-0.1); BASOPHILS % (AUTO) 1 % (0-10); EOSINOPHILS # (AUTO) 0.3 10^3/uL (0.0-0.3); EOSINOPHILS % (AUTO) 4 % (0-10); LYMPHOCYTES # (AUTO) 2.2 X 10^3 (1.0-4.0); LYMPHOCYTES % (AUTO) 35 % (12-44); MONOCYTES # (AUTO) 0.6 X 10^3 (0.0-1.0); MONOCYTES % (AUTO) 10 % (0-12); NEUTROPHILS # (AUTO) 3.1 X 10^3 (1.8-7.8); NEUTROPHILS % (AUTO) 49 % (42-75)
[2019-03-29 17:13] LABS: CLARITY,URINE CLEAR; COLOR,URINE YELLOW; GLUCOSE, URINE (UA) NEGATIVE (NEGATIVE); PROTEIN,URINE NEGATIVE (NEGATIVE)
[2019-03-29 17:13] LABS: PROTHROMBIN TIME PATIENT 13.6 SEC (12.2-14.7)
[2019-03-29 17:14] LABS: AMORPHOUS SEDIMENT,UR RARE AMOR PHOSPHATE /LPF; BACTERIA,URINE NEGATIVE /HPF; BILIRUBIN,URINE NEGATIVE (NEGATIVE); KETONES,URINE NEGATIVE (NEGATIVE); LEUKOCYTE ESTERASE ,URINE NEGATIVE (NEGATIVE); NITRITE,URINE NEGATIVE (NEGATIVE); SQUAMOUS EPITHELIAL CELL,UR RARE /HPF; UROBILINOGEN,URINE 0.2 MG/DL (NORMAL)
[2019-03-29 17:19] LABS: AMPHETAMINE SCREEN, URINE NEGATIVE (NEGATIVE); BARBITURATE SCREEN URINE NEGATIVE (NEGATIVE); BENZODIAZEPINES SCREEN URINE NEGATIVE (NEGATIVE); CANNABINOID SCREEN, URINE NEGATIVE (NEGATIVE); COCAINE SCREEN URINE NEGATIVE (NEGATIVE); METHADONE STAT NEGATIVE (NEGATIVE); METHAMPHETAMINE SCREEN URINE S NEGATIVE (NEGATIVE); OPIATE SCREEN URINE NEGATIVE (NEGATIVE); OXYCODONE STAT POSITIVE (NEGATIVE); PROPOXYPHENE STAT NEGATIVE (NEGATIVE); TRICYCLIC ANTIDEPRESSANTS SCRE NEGATIVE (NEGATIVE)
[2019-03-29 17:26] LABS: BUN/CREATININE RATIO 20; CALCIUM 9.3 MG/DL (8.5-10.1); CARBON DIOXIDE 27 MMOL/L (21-32); CHLORIDE 101 MMOL/L (98-107); CREATININE SERUM 1.15 MG/DL (0.60-1.30); GFR ESTIMATED > 60; GLUCOSE 133 MG/DL (70-105); MAGNESIUM 2.1 MG/DL (1.8-2.4); POTASSIUM 3.7 MMOL/L (3.6-5.0); SODIUM 141 MMOL/L (135-145)
[2019-03-29 17:27] LABS: ALANINE AMINOTRANSFERASE 18 U/L (0-55); ALBUMIN 4.2 GM/DL (3.2-4.5); ALKALINE PHOSPHATASE 58 U/L (40-136); BILIRUBIN,TOTAL 0.2 MG/DL (0.1-1.0); TOTAL PROTEIN 6.5 GM/DL (6.4-8.2)
[2019-03-29] MEDS ORDERED: KETOROLAC 30 MG/ML VIAL IVP ONE (17:30)
[2019-03-29] MEDS ORDERED: diphenhydrAMINE 50 MG/ML INJ (BENADRYL) IVP ONE (17:30)
[2019-03-29] MEDS ORDERED: PROMETHAZINE INJ 25 MG/ML (PHENERGAN) AMP IVP ONE (17:30)
[2019-03-29] MEDS ORDERED: DEXAMETHASONE 10 MG/ML (DECADRON) 1 ML VIAL IV ONE (17:30)
--- NOTE | 2019-03-29 17:31 | Diagnostic Imaging Report ---
PROCEDURE: CT head and CT cervical spine without contrast. TECHNIQUE: Multiple contiguous axial images were obtained through the brain and cervical spine without the use of intravenous contrast. Sagittal and coronal reformations through the cervical spine were then performed. Auto Exposure Controls were utilized during the CT exam to meet ALARA standards for radiation dose reduction. INDICATION: Head and neck trauma, memory loss. COMPARISON: None. FINDINGS: CT head: Ventricles are normal in size, shape, and position. There is no midline shift or mass effect. There is no hemorrhage or evidence of acute ischemia. No extra-axial fluid collection is seen. There is no cerebral edema. There is no skull fracture. Visualized paranasal sinuses demonstrate hyperdense air-fluid levels. However, no obvious facial fracture is seen on this series. This could be chronic sinusitis. Please correlate clinically. The mastoids are clear. IMPRESSION: 1. No acute intracranial abnormalities. 2. Hyperdense fluid within the maxillary sinuses could be secondary to hemorrhage of unknown source and/or sinus disease. No obvious acute facial fracture is seen on this series. CT cervical spine: There is straightening of the normal lordotic cervical curvature. Otherwise, no traumatic malalignment or fracture is identified. There is heyp-uq-qollaqhm diffuse degenerative disc disease and facet joint arthropathy. No osseous lesion is present. Bilateral carotid atherosclerosis is present. There is no paraspinous mass. IMPRESSION: 1. No traumatic malalignment or fracture. 2. Carotid artery atherosclerosis. Dictated by: Dictated on workstation # [id number]
[2019-03-29] MEDS ORDERED: NS IV 1000 ML 1,000 ML IV SCH (17:45)
[2019-03-29] MEDS ORDERED: TETANUS,DIPTH,PERTUSS P/F (BOOSTRIX) 0.5 ML VIAL IM ONE (17:45)
[2019-03-29] MEDS ORDERED: fentaNYL INJECTION 100 MCG/2 ML AMP IVP ONE (17:45)
--- NOTE | 2019-03-29 18:00 | NUR ---
Pt resting with by side. States he is feeling better.
--- NOTE | 2019-03-29 18:37 | NUR ---
Pt states he is feeling better. Pain level is 5/10.
[2019-03-29 18:59] VITALS: BP 136/80
== END 2019-03-29 19:01 | disposition home or self-care (01) ==
LOC: EDUNIT# 16:25 → ER FS 16:29
DX: G93.40 Encephalopathy, unspecified (principal); R20.2 Paresthesia of skin; R51 Headache; J45.909 Unspecified asthma, uncomplicated; G47.30 Sleep apnea, unspecified; I10 Essential (primary) hypertension; Z86.69 Personal history of other diseases of the nervous system and sense organs; Z79.82 Long term (current) use of aspirin; Z88.5 Allergy status to narcotic agent; Z88.8 Allergy status to other drugs, medicaments and biological substances; Z87.820 Personal history of traumatic brain injury
CPT/HCPCS: 36415; 70450; 72125; 80053; 80306; 80320; 81000; 83735; 84484; 85025; 85610; 85730; 90471; 90715; 93005; 96374; 96375

== ENCOUNTER 2019-06-16 17:49 | Emergency (ER) | payer MEDICARE, OTHER ==
[~2019-06-16] VITALS: Ht 161 cm; Wt 64.3 kg
--- NOTE | 2019-06-16 18:59 | ED Headache ---
General Chief Complaint: Head/Cervical Problems Stated Complaint: HEADACHE Nursing Triage Note: HEADACHE FOR 3 DAYS AND MIGRAINE THAT STARTED ABOUT 0200 THIS AM. Nursing Sepsis Screen: No Definite Risk Source: patient Exam Limitations: no limitations History of Present Illness Date Seen by Provider: Jun 16, 2019 Time Seen by Provider: 18:50 Initial Comments Presents with headache for the past 3 days with no relief. History of chronic headaches, migraines. Extensive workup in the past, has seen neurologist and considering evaluation are Botox treatment as he's had no significant breakthroughs with chronic headaches. No change in severity or pattern. Associated nausea as well as photophobia which are typical. No known cause of his headaches. Allergies and Home Medications Allergies Coded Allergies: topiramate (Verified Allergy, Unknown, 12/27/18) acetaminophen (Unverified Adverse Reaction, Mild, rash, 12/27/18) codeine (Unverified Adverse Reaction, Mild, Nausea and vomiting, 12/27/18) hydrocodone (Unverified Adverse Reaction, Mild, Nausea and vomiting, 12/27/18) Home Medications Ibuprofen 800 Mg Tablet, 800 MG PO Q8H PRN for PAIN-MILD Prescribed by: SHANITA GOODWIN on 06/16/192021 Metoclopramide HCl 10 Mg Tablet, 10 MG PO Q6H Prescribed by: SHANITA GOODWIN on 06/16/192021 Patient Home Medication List Home Medication List Reviewed: Yes Review of Systems Review of Systems Constitutional: see HPI; No dizziness, No fever; malaise; No weakness Eyes: Denies Blindness, Denies Blurred Vision, Denies Pain; Photophobia Ears, Nose, Mouth, Throat: no symptoms reported Respiratory: no symptoms reported Cardiovascular: no symptoms reported Gastrointestinal: No abdominal pain, No loss of appetite; nausea; No vomiting Psychiatric/Neurological: Headache; Denies Numbness, Denies Paresthesia, Denies Pre-Existing Deficit, Denies Seizure, Denies Tingling, Denies Tremors, Denies Weakness Past Cstaldj-Bphuij-Dquvbl Hx Past Med/Social Hx: Reviewed Nursing Past Med/Soc Hx Patient Social History Alcohol Use: Denies Use Recreational Drug Use: No 2nd Hand Smoke Exposure: No Recent Foreign Travel: No Contact w/Someone Who Travel: No Recent Infectious Disease Expo: No Recent Hopitalizations: No Physical Abuse: No Sexual Abuse: No Mistreated: No Fear: No Immunizations Up To Date Date of Influenza Vaccine: May 16, 2018 Seasonal Allergies Seasonal Allergies: Yes Past Medical History Surgeries: Yes (heart cath, colonoscopy) Respiratory: Yes Asthma, Sleep Apnea Cardiac: Yes Hypertension Neurological: Yes (Hx of Subarachnoid) Headaches /Migraines, Traumatic Brain Injury Sexually Transmitted Disease: No Genitourinary: No Gastrointestinal: No Musculoskeletal: No Endocrine: No HEENT: No Cancer: No Psychosocial: No Integumentary: No Blood Disorders: No Physical Exam Vital Signs Vital Signs - First Documented 06/16/19 17:55 Temp 36.7 Pulse 72 Resp 18 B/P (MAP) 149/80 (103) O2 Delivery Room Air Capillary Refill : Less Than 3 Seconds Height, Weight, BMI Height: 5'3.00" Weight: 138lbs. oz. 62.677176cr; 24.00 BMI Method:Stated General Appearance: WD/WN, no apparent distress HEENT: PERRL/EOMI, normal ENT inspection, TMs normal, pharynx normal, photophobia Neck: non-tender, full range of motion, supple, normal inspection Psychiatric: alert, oriented x 3; No lethargic Crainal Nerves: normal hearing, normal speech, PERRL Coordination/Gait: normal gait Motor/Sensory: no motor deficit, no sensory deficit Progress/Results/Core Measures Results/Orders My Orders Orders - SHANITA GOODWIN DO Ed Iv/Invasive Line Start (06/16/19 18:53) Ketorolac Injection (Toradol Injection) (06/16/19 19:00) Metoclopramide Injection (Reglan Injecti (06/16/19 19:00) Diphenhydramine Injection (Benadryl Inje (06/16/19 19:00) Ns Iv 1000 Ml (Sodium Chloride 0.9%) (06/16/19 19:00) Ketorolac Injection (Toradol Injection) (06/16/19 20:00) Metoclopramide Injection (Reglan Injecti (06/16/19 20:00) Medications Given in ED Current Medications Medications Dose Ordered Sig/Hao Route Start Time Stop Time Status Last Admin Dose Admin Diphenhydramine HCl 25 mg ONCE ONCE IVP 06/16/19 19:00 06/16/19 19:01 DC 06/16/19 19:13 25 MG Ketorolac Tromethamine 15 mg ONCE ONCE IVP 06/16/19 19:00 06/16/19 19:01 DC 06/16/19 19:13 15 MG Ketorolac Tromethamine 15 mg ONCE ONCE IVP 06/16/19 20:00 06/16/19 20:01 DC 06/16/19 20:00 15 MG Metoclopramide HCl 5 mg ONCE ONCE IVP 06/16/19 19:00 06/16/19 19:01 DC 06/16/19 19:13 5 MG Metoclopramide HCl 10 mg ONCE ONCE IVP 06/16/19 20:00 06/16/19 20:01 DC 06/16/19 20:00 10 MG Vital Signs/I&O 06/16/19 17:55 Temp 36.7 Pulse 72 Resp 18 B/P (MAP) 149/80 (103) O2 Delivery Room Air Blood Pressure Mean: 103 Progress Progress Note : Time: 20:10 Progress Note NO relief after 1st dose of Reglan 5mg and Toradol 15mg, Given 2nd dose of the same and starting to have decreased intensity of GUTIERREZ. 2030 MUCH improved p 3rd dose of Reglan 5mg IV (total of 15mg) Discussed migraine triggers, Rx's given and follow up Departure Impression Primary Impression: Migraine Qualified Codes: G43.909 - Migraine, unspecified, not intractable, without status migrainosus Disposition: 01 HOME, SELF-CARE Condition: Improved Departure-Patient Inst. Referrals: ADDIE CHRISTIANSEN MD (PCP/Family) Primary Care Physician Patient Instructions: Migraine Headache (DC) Scripts Ibuprofen (Ibuprofen) 800 Mg Tablet 800 MG PO Q8H PRN for PAIN-MILD, #20 TAB Prov: MISAELSTSHANITA MERCADO L DO 06/16/19 Metoclopramide HCl (Reglan) 10 Mg Tablet 10 MG PO Q6H for Migraine, #20 TAB Prov: ROVENSTINE,SHANITA L DO 06/16/19 ROVENSTINESHANITA L DO Jun 16, 2019 18:59
[2019-06-16] MEDS ORDERED: NS IV 1000 ML 1,000 ML IV SCH (19:00)
[2019-06-16] MEDS ORDERED: diphenhydrAMINE 50 MG/ML INJ (BENADRYL) IVP ONE (19:00)
[2019-06-16] MEDS ORDERED: KETOROLAC 30 MG/ML VIAL IVP ONE ×2 (19:00→20:00)
[2019-06-16] MEDS ORDERED: METOCLOPRAMIDE INJ 10 MG/2 ML (REGLAN) IVP ONE ×3 (19:00→20:00)
--- NOTE | 2019-06-16 19:21 | NUR ---
PT RESTING IN BED WITH LIGHTS OFF AND FAMILY AT BEDSIDE. PT STATES THERE IS NOTHING HE NEEDS AT THIS TIME. PT AND FAMILY ARE IN GOOD SPIRITS AND COOPERATIVE.
--- NOTE | 2019-06-16 20:19 | NUR ---
PT STATES THAT HE IS FEELING BETTER. PT IS SITTING ON THE SIDE OF THE BED WATCHING SOMETHING ON HIS PHONE.
[2019-06-16] MEDS ORDERED: METO-310 PO (20:22)
[2019-06-16] MEDS ORDERED: IBUP-1780 PO (20:22)
[2019-06-16 20:37] VITALS: BP 138/71
== END 2019-06-16 20:37 | disposition home or self-care (01) ==
LOC: EDUNIT# 17:49 → ER FS 17:50
DX: G43.909 Migraine, unspecified, not intractable, without status migrainosus (principal); I10 Essential (primary) hypertension; J45.909 Unspecified asthma, uncomplicated; Z95.9 Presence of cardiac and vascular implant and graft, unspecified; Z87.820 Personal history of traumatic brain injury; Z88.6 Allergy status to analgesic agent; Z88.5 Allergy status to narcotic agent; Z88.8 Allergy status to other drugs, medicaments and biological substances

== ENCOUNTER → 2019-11-26 | Outpatient (CLI) | payer MEDICARE, OTHER ==
[~2019-11-26] MED LIST: IBUP-1780 PO; METO-310 PO
[2019-11-26 14:47] LABS: BILIRUBIN,URINE NEGATIVE (NEGATIVE); CLARITY,URINE CLOUDY; COLOR,URINE YELLOW; GLUCOSE, URINE (UA) NEGATIVE (NEGATIVE); KETONES,URINE NEGATIVE (NEGATIVE); LEUKOCYTE ESTERASE ,URINE NEGATIVE (NEGATIVE); NITRITE,URINE NEGATIVE (NEGATIVE); PH,URINE 5.5 (5-9); PROTEIN,URINE 2+ (NEGATIVE)
[2019-11-26 14:55] LABS: AMORPHOUS SEDIMENT,UR MOD AMOR URATES /LPF; BACTERIA,URINE NEGATIVE /HPF; SQUAMOUS EPITHELIAL CELL,UR 0-2 /HPF; WBC,URINE 0-2 /HPF
== END ==
LOC: LABNPT 14:42
PROVIDERS: ATTEND Family Medicine
DX: M54.5 Low back pain (principal)
CPT/HCPCS: 81000

== ENCOUNTER 2019-11-27 17:33 | Emergency (ER) | payer MEDICARE, OTHER ==
[~2019-11-27] VITALS: Ht 160 cm; Wt 64.3 kg
[2019-11-27 17:33] VITALS: BP 143/82
--- NOTE | 2019-11-27 18:14 | ED Headache ---
General Chief Complaint: Head/Cervical Problems Stated Complaint: HEADACHE Nursing Triage Note: Patient presents to the ED with c/o of migraine. States that his headache started Friday and that he was seen at [facility] walk in clinic where he recieved 4 shots. He states that his pain has not really improved and was told if he needed any further care that he needed to be evaluated in the ED. Nursing Sepsis Screen: No Definite Risk History of Present Illness Date Seen by Provider: Nov 27, 2019 Time Seen by Provider: 18:00 Initial Comments This patient is a 64-year-old male with a well-known history of chronic neck and headache pain. The patient was seen multiple times in the emergency Department for the same. Last seen in urgent care 1 day ago. Seen by his PCP 2 days ago. Patient does take chronic medications for his headaches including oxycodone. 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 Thank just hurt in his neck and causes headaches. chronic nonemergent issue. Patient does not appear to be acutely in discomfort. Timing/Duration: constant Severity/Quality: mild, constant Location: temporal, occipital Prior Headaches/Recent Trauma: chronic headaches Modifying Factors: improves with movement Allergies and Home Medications Allergies Coded Allergies: topiramate (Verified Allergy, Unknown, 12/27/18) acetaminophen (Unverified Adverse Reaction, Mild, rash, 12/27/18) codeine (Unverified Adverse Reaction, Mild, Nausea and vomiting, 12/27/18) hydrocodone (Unverified Adverse Reaction, Mild, Nausea and vomiting, ) Home Medications Ibuprofen 800 Mg Tablet, 800 MG PO Q8H PRN for PAIN-MILD Prescribed by: SHANITA GOODWIN on 06/16/192021 Metoclopramide HCl 10 Mg Tablet, 10 MG PO Q6H Prescribed by: SHANITA GOODWIN on 06/16/192021 Patient Home Medication List Home Medication List Reviewed: Yes Review of Systems Review of Systems Constitutional: no symptoms reported, see HPI; No chills, No diaphoresis, No dizziness, No fever, No malaise, No weakness, No weight gain, No weight loss, No other Eyes: No Symptoms Reported; Denies See HPI, Denies Blindness, Denies Blurred Vision, Denies Drainage, Denies Decreased Acuity, Denies Foreign Body Sensation, Denies Inflammation, Denies Pain, Denies Photophobia, Denies Previous Injury, Denies Shadows, Denies Tunnel Vision, Denies Vision Changes, Denies Contact Lenses, Denies Glasses, Denies Other Ears, Nose, Mouth, Throat: no symptoms reported; denies see HPI, denies ear pain, denies ear discharge, denies nose pain, denies nose discharge, denies epistaxis, denies mouth pain, denies mouth swelling, denies loose teeth, denies throat pain, denies throat swelling Respiratory: no symptoms reported; No see HPI, No cough, No dyspnea on exertion, No hemoptysis, No orthopnea, No phlegm, No short of breath, No stridor, No wheezing, No other Cardiovascular: no symptoms reported; No see HPI, No chest pain, No edema, No Hx of Intervention, No palpitations, No syncope, No vascular heart diseas, No other Gastrointestinal: No RUQ, No LUQ, No RLQ, No LLQ; no symptoms reported; No see HPI, No abdominal pain, No constipation, No diarrhea, No dysphagia, No hematemesis, No heartburn, No jaundice, No loss of appetite, No melena, No nausea, No vomiting, No other Genitourinary: no symptoms reported; No see HPI, No decreased output, No discharge, No dysuria, No frequency, No hematuria, No hesitancy, No incontinence, No nocturia, No pain, No other Musculoskeletal: no symptoms reported; No see HPI, No back pain, No gout, No joint pain, No joint swelling, No muscle pain, No muscle stiffness, No muscle cramps, No muscle twitching, No muscle weakness, No neck pain, No other Past Scyhewt-Rlicyj-Njpoea Hx Patient Social History Alcohol Use: Denies Use Recreational Drug Use: No Smoking Status: Never a Smoker 2nd Hand Smoke Exposure: No Recent Foreign Travel: No Contact w/Someone Who Travel: No Recent Infectious Disease Expo: No Recent Hopitalizations: No Physical Abuse: No Sexual Abuse: No Mistreated: No Fear: No Immunizations Up To Date Date of Influenza Vaccine: May 16, 2018 Seasonal Allergies Seasonal Allergies: Yes Past Medical History Surgeries: Yes (heart cath, colonoscopy) Respiratory: Yes Asthma, Sleep Apnea Cardiac: Yes Hypertension Neurological: Yes (Hx of Subarachnoid) Headaches /Migraines, Traumatic Brain Injury Sexually Transmitted Disease: No Genitourinary: No Gastrointestinal: No Musculoskeletal: No Endocrine: No HEENT: No Cancer: No Psychosocial: No Integumentary: No Blood Disorders: No Physical Exam Vital Signs Vital Signs - First Documented 11/27/19 17:33 Temp 36.6 Pulse 102 Resp 18 B/P (MAP) 143/82 (102) O2 Delivery Room Air Capillary Refill : Less Than 3 Seconds Height, Weight, BMI Height: 5'3.00" Weight: 138lbs. oz. [id number]; 25.00 BMI Method:Stated General Appearance: WD/WN, no apparent distress HEENT: PERRL/EOMI, normal ENT inspection, TMs normal, pharynx normal Neck: supple, normal inspection, other (significant tenderness to the left shoulder area trapezius muscle. Patient describes as a sharp and stabbing with just minimal pressure. This appears to be consistent with tension headaches.) Cardiovascular: normal peripheral pulses, regular rate, rhythm, no edema, no gallop, no JVD, no murmur Respiratory: chest non-tender, lungs clear, normal breath sounds, no respiratory distress, no accessory muscle use Progress/Results/Core Measures Results/Orders My Orders Orders - SANDRA SOLARES MD Orphenadrine Injection (Norflex Injectio (11/27/19 18:15) Ketorolac Injection (Toradol Injection) (11/27/19 18:15) Diphenhydramine Injection (Benadryl Inje (11/27/19 18:15) Vital Signs/I&O 11/27/19 17:33 Temp 36.6 Pulse 102 Resp 18 B/P (MAP) 143/82 (102) O2 Delivery Room Air Blood Pressure Mean: 102 Progress Progress Note : Progress Note I did discuss at length with patient about his chronic conditions. Discussed at length with patient advised we will give patient a shot of Norflex. Toradol. And Benadryl. Patient is to continue at home with his home medications including oxycodone and other medications to help his chronic tension headaches. Patient should call the following instructions. Alternate heat and ice to the neck area. Should use stretching exercises daily. Patient is to follow-up with his primary care physician in 2-3 days discuss whether a different options of pain medications and muscle relaxers. The patient most likely has develops intolerances to some of the medications and the need to be adjusted by his PCP. Patient should also be referred to chronic pain management and possible patient is further evaluation with possible MRI of the neck as an outpatient. Continue home medications. Patient should get a cool dark place tonight not take his oxycodone for at least 2 hours after the injections. Patient is discharged home Departure Impression Primary Impression: Tension type headache Disposition: 01 HOME, SELF-CARE Condition: Stable Departure-Patient Inst. Referrals: ADDIE CHRISTIANSEN MD (PCP/Family) Primary Care Physician Patient Instructions: Headache, Adult (DC), Tension Headache (DC) Add. Discharge Instructions: Alternate heat and ice to the neck area. Should use stretching exercises daily. Patient is to follow-up with his primary care physician in 2-3 days discuss whether a different options of pain medications and muscle relaxers. The patient most likely has develops intolerances to some of the medications and the need to be adjusted by his PCP. Patient should also be referred to chronic pain management and possible patient is further evaluation with possible MRI of the neck as an outpatient. Continue home medications. Patient should get a cool dark place tonight not take his oxycodone for at least 2 hours after the injections. Patient is discharged home All discharge instructions reviewed with patient and/or family. Voiced understanding. SANDRA SOLARES MD Nov 27, 2019 18:14
[2019-11-27] MEDS ORDERED: ORPHENADRINE 60 MG/2 ML (NORFLEX) AMP IM ONE (18:15)
[2019-11-27] MEDS ORDERED: diphenhydrAMINE 50 MG/ML INJ (BENADRYL) IM ONE (18:15)
[2019-11-27] MEDS ORDERED: KETOROLAC 60 MG/2 ML VIAL IM ONE (18:15)
--- OUTSIDE RECORDS SUMMARY | 2019-11-28 21:05 | XMS REPORT | Continuity of Care Document ---
Author Organization Unknown Address Unknown Phone Unavailable Allergies Active Description Code Type Severity Reaction Onset Reported/Identified Relationship to Patient Clinical Status Yes acetaminophen [id number] Remberto g Allergy Mild rash 12/27/2018 Yes codeine [id number] Drug Allergy Mild Nausea and vomi 12/27/2018 Yes hydrocodone [id number] Drug Aller gy Mild Nausea and vomi 12/27/2018 Yes topiramate [id number] Drug Allerg y Unknown N/A 12/27/2018 Medications There is no data. 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 12/27/2018 TIFFANIE BERUMEN MD, Ot Z88.5 ALLERGY STATUS TO NARCOTIC AGENT STATUS 12/27/2018 TIFFANIE BERUMEN MD, Ot Z88.8 ALLERGY STATUS TO OTH DRUG/MEDS/BIOL SUB 12/30/2018 TIFFANIE BERUMEN MD, Ot G43.7 19 CHRONIC MIGRAINE W/O AURA, INTRACTABLE, 12/30/2018 TIFFANIE BERUMEN MD, Ot G43.9 09 MIGRAINE, UNSP, NOT INTRACTABLE, WITHOUT 12/30/2018 TIFFANIE BERUMEN MD Ot I10 ESSENTIAL (PRIMARY) HYPERTENSION 12/30/2018 TIFFANIE BERUMEN MD, Ot Z87.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 12/30/2018 TIFFANIE BERUMEN MD, Ot Z88.5 ALLERGY STATUS TO NARCOTIC AGENT STATUS 12/30/2018 TIFFANIE BERUMEN MD, Ot Z88.8 ALLERGY STATUS TO OTH DRUG/MEDS/BIOL SUB 12/30/2018 TIFFANIE BERUMEN MD Ot G43.7 19 CHRONIC MIGRAINE W/O AURA, INTRACTABLE, 12/30/2018 TIFFANIE BERUMEN MD Ot G43.9 09 MIGRAINE, UNSP, NOT INTRACTABLE, WITHOUT 12/30/2018 TIFFANIE BERUMEN MD Ot I10 ESSENTIAL (PRIMARY) HYPERTENSION 12/30/2018 TIFFANIE BERUMEN MD Ot 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 30 SLEEP APNEA, UNSPECIFIED 03/28/2019 JAMES ARNOLD, JESSE J Ot I10 ESSENTIAL (PRIMARY) HYPERTENSION 03/28/2019 JAMES ARNOLD, JESSE J Ot J45.909 UNSPECIFIED ASTHMA, UNCOMPLICATED 03/28/2019 JESSE RAMIREZ MD Ot R04. 0 EPISTAXIS 03/28/2019 JESSE RAMIREZ MD Ot R40.2142 COMA SCALE, EYES OPEN, SPONTANEOUS, EMR 03/28/2019 JESSE RAMIREZ MD Ot R40.2252 COMA SCALE, BEST VERBAL RESPONSE, ORIENT 03/28/2019 JESSE RAMIREZ MD Ot R40.2362 COMA SCALE, BEST MOTOR RESPONSE, OBEYS C 03/28/2019 JESSE RAMIREZ MD Ot S01.20XA UNSPECIFIED OPEN WOUND OF NOSE, INITIAL 03/28/2019 JESSE RAMIREZ MD Ot S09.92XA UNSPECIFIED INJURY OF NOSE, INITIAL ENCO 03/28/2019 JESSE RAMIREZ MD Ot W10.1XXA FALL (ON)(FROM) SIDEWALK CURB, INITIAL E 03/28/2019 JESSE RAMIREZ MD Ot Y93. 01 ACTIVITY, WALKING, MARCHING AND HIKING 03/28/2019 JESSE RAMIREZ MD, Ot Z87.820 PERSONAL HISTORY OF TRAUMATIC BRAIN INJU 03/28/2019 JESSE RAMIREZ MD, Ot Z88. 5 ALLERGY STATUS TO NARCOTIC AGENT STATUS 03/28/2019 JESSE RAMIREZ MD, Ot Z88. 8 ALLERGY STATUS TO OTH DRUG/MEDS/BIOL SUB 03/29/2019 GALINA RUIZ DO Ot G47.30 SLEEP APNEA, UNSPECIFIED 03/29/2019 GALINA RUIZ DO Ot G93.40 ENCEPHALOPATHY, UNSPECIFIED 03/29/2019 GALINA RUIZ DO Ot I10 ESSENTIAL (PRIMARY) HYPERTENSION 03/29/2019 GALINA RUIZ DO Ot J45.909 UNSPECIFIED ASTHMA, UNCOMPLICATED 03/29/2019 GALINA RUIZ DO, Ot R20 .0 ANESTHESIA OF SKIN 03/29/2019 GALINA RUIZ DO Ot R20 .2 PARESTHESIA OF SKIN 03/29/2019 GALINA RUIZ DO Ot R51 HEADACHE 03/29/2019 GALINA RUIZ DO Ot Z79.82 JAIL (CURRENT) USE OF ASPIRIN 03/29/2019 GALINA RUIZ DO Ot Z86.69 PERSONAL HISTORY OF DIS OF THE NERVOUS S 03/29/2019 GALINA RUIZ DO, Ot Z87.820 PERSONAL HISTORY OF TRAUMATIC BRAIN INJU 03/29/2019 GALINA RUIZ DO Ot Z88 .5 ALLERGY STATUS TO NARCOTIC AGENT STATUS 03/29/2019 GALINA RUIZ DO Ot Z88 .8 ALLERGY STATUS TO OTH DRUG/MEDS/BIOL SUB 04/05/2019 JESSE RAMIREZ MD Ot G43.909 MIGRAINE, UNSP, NOT INTRACTABLE, WITHOUT 04/05/2019 JESSE RAMIREZ MD Ot G47. 30 SLEEP APNEA, UNSPECIFIED 04/05/2019 JESSE RAMIREZ MD Ot I10 ESSENTIAL (PRIMARY) HYPERTENSION 04/05/2019 JESSE RAMIREZ MD Ot J45.909 UNSPECIFIED ASTHMA, UNCOMPLICATED 04/05/2019 JESSE RAMIREZ MD Ot R04. 0 EPISTAXIS 04/05/2019 JESSE RAMIREZ MD Ot R40.2142 COMA SCALE, EYES OPEN, SPONTANEOUS, EMR 04/05/2019 JESSE RAMIREZ MD Ot R40.2252 COMA SCALE, BEST VERBAL RESPONSE, ORIENT 04/05/2019 JESSE RAMIREZ MD Ot R40.2362 COMA SCALE, BEST MOTOR RESPONSE, OBEYS C 04/05/2019 JESSE RAMIREZ MD Ot S01.20XA UNSPECIFIED OPEN WOUND OF NOSE, INITIAL 04/05/2019 JESSE RAMIREZ MD Ot S09.92XA UNSPECIFIED INJURY OF NOSE, INITIAL ENCO 04/05/2019 JESSE RAMIREZ MD Ot W10.1XXA FALL (ON)(FROM) SIDEWALK CURB, INITIAL E 04/05/2019 JESSE RAMIREZ MD Ot Y93. 01 ACTIVITY, WALKING, MARCHING AND HIKING 04/05/2019 JESSE RAMIREZ MD Ot Z87.820 PERSONAL HISTORY OF TRAUMATIC BRAIN INJU 04/05/2019 JESSE RAMIREZ MD Ot Z88. 5 ALLERGY STATUS TO NARCOTIC AGENT STATUS 04/05/2019 JESSE RAMIREZ MD Ot Z88. 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 30 SLEEP APNEA, UNSPECIFIED 04/06/2019 JESSE RAMIREZ MD Ot I10 ESSENTIAL (PRIMARY) HYPERTENSION 04/06/2019 JESSE RAMIREZ MD Ot J45.909 UNSPECIFIED ASTHMA, UNCOMPLICATED 04/06/2019 JESSE RAMIREZ MD Ot R04. 0 EPISTAXIS 04/06/2019 JESSE RAMIREZ MD Ot R40.2142 COMA SCALE, EYES OPEN, SPONTANEOUS, EMR 04/06/2019 JESSE RAMIREZ MD Ot R40.2252 COMA SCALE, BEST VERBAL RESPONSE, ORIENT 04/06/2019 JESSE RAMIREZ MD Ot R40.2362 COMA SCALE, BEST MOTOR RESPONSE, OBEYS C 04/06/2019 JESSE RAMIREZ MD Ot S01.20XA UNSPECIFIED OPEN WOUND OF NOSE, INITIAL 04/06/2019 JESSE RAMIREZ MD Ot S09.92XA UNSPECIFIED INJURY OF NOSE, INITIAL ENCO 04/06/2019 JESSE RAMIREZ MD Ot W10.1XXA FALL (ON)(FROM) SIDEWALK CURB, INITIAL E 04/06/2019 JESSE RAMIREZ MD Ot Y93. 01 ACTIVITY, WALKING, MARCHING AND HIKING 04/06/2019 JESSE RAMIREZ MD Ot Z87.820 PERSONAL HISTORY OF TRAUMATIC BRAIN INJU 04/06/2019 JESSE RAMIREZ MD Ot Z88. 5 ALLERGY STATUS TO NARCOTIC AGENT STATUS 04/06/2019 JESSE RAMIREZ MD Ot Z88. 8 ALLERGY STATUS TO OTH DRUG/MEDS/BIOL SUB 06/16/2019 ROVENSTINE DO, SHANITA Stephen Ot G43.909 MIGRAINE, UNSP, NOT INTRACTABLE, WITHOUT 06/16/2019 ROVENSTINE DO, SHANITA Stephen Ot I10 ESSENTIAL (PRIMARY) HYPERTENSION 06/16/2019 ROVENSTINE DO, SHANITA Stephen Ot J45.909 UNSPECIFIED ASTHMA, UNCOMPLICATED 06/16/2019 ROVENSTINE DO, SHANITA L Ot R51 HEADACHE 06/16/2019 ROVENSTINE DO, SHANITA Mitchell Ot Z87.820 PERSONAL HISTORY OF TRAUMATIC BRAIN INJU 06/16/2019 ROVENSTINE DO, SHANITA Mitchell Ot Z88.5 ALLERGY STATUS TO NARCOTIC AGENT STATUS 06/16/2019 ROVENSTINE DO, SHANITA L Ot Z88.6 ALLERGY STATUS TO ANALGESIC AGENT STATUS 06/16/2019 ROVENSTINE DO, SHANITA L Ot Z88.8 ALLERGY STATUS TO OTH DRUG/MEDS/BIOL SUB 06/16/2019 ROVENSTINE DO, SHANITA L Ot Z95.9 PRESENCE OF CARDIAC AND VASCULAR IMPLANT 06/18/2019 ROVENSTINE DO, SHANITA L Ot G43.909 MIGRAINE, UNSP, NOT INTRACTABLE, WITHOUT 06/18/2019 ROVENSTINE DO, SHANITA L Ot I10 ESSENTIAL (PRIMARY) HYPERTENSION 06/18/2019 ROVENSTINE DO, SHANITA L Ot J45.909 UNSPECIFIED ASTHMA, UNCOMPLICATED 06/18/2019 ROVENSTINE DO, SHANITA L Ot R51 HEADACHE 06/18/2019 ROVENSTINE DO, SHANITA L Ot Z87.820 PERSONAL HISTORY OF TRAUMATIC BRAIN INJU 06/18/2019 ROVENSTINE DO, SHANITA L Ot Z88.5 ALLERGY STATUS TO NARCOTIC AGENT STATUS 06/18/2019 ROVENSTINE DO, SHANITA L Ot Z88.6 ALLERGY STATUS TO ANALGESIC AGENT STATUS 06/18/2019 ROVENSTINE DO, SHANITA L Ot Z88.8 ALLERGY STATUS TO OTH DRUG/MEDS/BIOL SUB 06/18/2019 ROVENSTINE DO, SHANITA Mitchell Ot Z95.9 PRESENCE OF CARDIAC AND VASCULAR IMPLANT 06/24/2019 ROVENSTINE DO, SHANITA Mitchell Ot G43.909 MIGRAINE, UNSP, NOT INTRACTABLE, WITHOUT 06/24/2019 ROVENSTINE DO, SHANITA Mitchell Ot I10 ESSENTIAL (PRIMARY) HYPERTENSION 06/24/2019 ROVENSTINE DO, SHANITA Mitchell Ot J45.909 UNSPECIFIED ASTHMA, UNCOMPLICATED 06/24/2019 ROVENSTINE DO, SHANITA Mitchell Ot R51 HEADACHE 06/24/2019 ROVENSTINE DO, SHANITA Mitchell Ot Z87.820 PERSONAL HISTORY OF TRAUMATIC BRAIN INJU 06/24/2019 ROVENSTINE DO, SHANITA Mitchell Ot Z88.5 ALLERGY STATUS TO NARCOTIC AGENT STATUS 06/24/2019 ROVENSTINE DO, SHANITA Mitchell Ot Z88.6 ALLERGY STATUS TO ANALGESIC AGENT STATUS 06/24/2019 ROVENSTINE DO, SHANITA Mitchell Ot Z88.8 ALLERGY STATUS TO OTH DRUG/MEDS/BIOL SUB 06/24/2019 ROVENSTINE DO, SHANITA Mitchell Ot Z95.9 PRESENCE OF CARDIAC AND VASCULAR IMPLANT Procedures There is no data. Results Test Result Range Complete blood count (CBC) with automate d white blood cell (WBC) differential - 03/29/19 16:49 Blood leukocytes automated count (number/volume) 6.3 10*3/uL 4.3-11.0 Blood erythrocytes automated count (number/volume) 4.25 10*6/uL 4.35-5.85 Venous blood hemoglobin measurement (mass/volume) 13.1 g/dL 13.3-17.7 Blood hematocrit (volume fraction) 38 % 40-54 Automated erythrocyte mean corpuscular volume 90 [ foz_us] 80-99 Automated erythrocyte mean corpuscular h emoglobin (mass per erythrocyte) 31 pg 25-34 Automated erythrocyte mean corpuscular h emoglobin concentration measurement (mass/volume) 34 g/dL 32-36 Automated erythrocyte distribution width ratio 13. 6 % 10.0- 14.5 Automated blood platelet count (count/volume) 229 10*3/uL 130-400 Automated blood platelet mean volume measurement 9.4 [foz_us] 7.4-10.4 Automated blood neutrophils/100 leukocytes 49 % 42-75 Automated blood lymphocytes/100 leukocytes 35 % 12-44 Blood monocytes/100 leukocytes 10 % 0-12 Automated blood eosinophils/100 leukocytes 4 % 0-10 Automated blood basophils/100 leukocytes 1 % 0-10 Blood neutrophils automated count (number/volume) 3.1 10*3 1.8-7.8 Blood lymphocytes automated count (number/volume) 2.2 10*3 1.0-4.0 Blood monocytes automated count (number/volume) 0. 6 10*3 0.0-1.0 Automated eosinophil count 0.3 10*3/uL 0 .0-0.3 Automated blood basophil count (count/volume) 0.1 10*3/uL 0.0-0.1 PT panel in platelet poor plasma by coag ulation assay - 03/29/19 16:49 Prothrombin time (PT) in platelet poor plasma by coagu lation assay 13.6 s 12.2-14.7 INR in platelet poor plasma or blood by coagulation as say 1.0 0.8-1.4 Activated partial thromboplastin time (a PTT) in platelet poor plasma bycoagulation assay - 03/29/19 16:49 Activated partial thromboplastin time (a PTT) in platelet poor plasma bycoagulation assay 28 s 24-35 Comprehensive metabolic panel - 03/29/19 16:49 Serum or plasma sodium measurement (moles/volume) 141 mmol/L 135-145 Serum or plasma potassium measurement (moles/volume) 3.7 mmol/L 3.6-5.0 Serum or plasma chloride measurement (moles/volume) 101 mmol/L 98-107 Carbon dioxide 27 mmol/L 21-32 Serum or plasma anion gap determination (moles/volume) 13 mmol/L 5-14 Serum or plasma urea nitrogen measurement (mass/volume ) 23 mg/dL 7-18 Serum or plasma creatinine measurement (mass/volume) 1.15 mg/dL 0.60-1.30 Serum or plasma urea nitrogen/creatinine mass ratio 20 NRG Serum or plasma creatinine measurement w ith calculation of estimated glomerular filtration rate > NRG Serum or plasma glucose measurement (mass/volume) 133 mg/dL 70-105 Serum or plasma calcium measurement (mass/volume) 9.3 mg/dL 8.5-10.1 Serum or plasma total bilirubin measurement (mass/volu me) 0.2 mg/dL 0.1-1.0 Serum or plasma alkaline phosphatase ray surement (enzymatic activity/volume) 58 U/L 40-136 Serum or plasma aspartate aminotransfera se measurement (enzymatic activity/volume) 26 U/L 5-34 Serum or plasma alanine aminotransferase measurement (enzymatic activity/volume) 18 U/L 0-55 Serum or plasma protein measurement (mass/volume) 6.5 g/dL 6.4-8.2 Serum or plasma albumin measurement (mass/volume) 4.2 g/dL 3.2-4.5 CALCIUM CORRECTED 9.1 mg/dL 8.5-10.1 Magnesium - 03/29/19 16:49 Magnesium 2.1 mg/dL 1.8-2.4 Serum or plasma troponin i.cardiac measu rement (mass/volume) - 03/29/19 16:49 Serum or plasma troponin i.cardiac measurement (mass/v olume) < ng/mL <0.30 Serum or plasma ethanol measurement (mas s/volume) - 03/29/19 16:49 Serum or plasma ethanol measurement (mass/volume) < mg/dL <10 Complete urinalysis with reflex to cultu re - 03/29/19 16:59 Urine color determination YELLOW NRG Urine clarity determination CLEAR NR G Urine pH measurement by test strip 7.0 5-9 Specific gravity of urine by test strip 1.015 1.016-1.022 Urine protein assay by test strip, semi-quantitative NEGATIVE NEGATIVE Urine glucose detection by automated test strip NE GATIVE NEGATIVE Erythrocytes detection in urine sediment by light micr oscopy NEGATIVE NEGATIVE Urine ketones detection by automated test strip NE GATIVE NEGATIVE Urine nitrite detection by test strip NEGATIVE NEGATIVE Urine total bilirubin detection by test strip NEGA TIVE NEGATIVE Urine urobilinogen measurement by automated test strip (mass/volume) 0.2 mg/dL NORMAL Urine leukocyte esterase detection by dipstick NEG ATIVE NEGATIVE Automated urine sediment erythrocyte cou nt by microscopy (number/high power field) NONE NRG Automated urine sediment leukocyte count by microscopy (number/high power field) NONE NRG Bacteria detection in urine sediment by light microsco py NEGATIVE NRG Squamous epithelial cells detection in u rine sediment by light microscopy RARE NRG Crystals detection in urine sediment by light microsco py PRESENT NRG Casts detection in urine sediment by light microscopy NONE NRG Mucus detection in urine sediment by light microscopy NONE NRG Complete urinalysis with reflex to culture NO NRG Amorphous sediment detection in urine sediment by ligh t microscopy RARE MANUEL PHOSPHATE NRG Urine drug screening test - 03/29/19 16: 59 Urine phencyclidine detection by screening method NEGATIVE NEGATIVE Urine benzodiazepines detection by screening method NEGATIVE NEGATIVE Urine cocaine detection NEGATIVE NEGATI VE Urine amphetamines detection by screening method N EGATIVE NEGATIVE Urine methamphetamine detection by screening method NEGATIVE NEGATIVE Urine cannabinoids detection by screening method N EGATIVE NEGATIVE Urine opiates detection by screening method NEGATI VE NEGATIVE Urine barbiturates detection NEGATIVE N EGATIVE Screening urine tricyclic antidepressants detection NEGATIVE NEGATIVE Urine methadone detection by screening method NEGA TIVE NEGATIVE Urine oxycodone detection POSITIVE NEGA TIVE Urine propoxyphene detection NEGATIVE N EGATIVE Encounters ACCT No. Visit Date/Time Discharge Status Pt. Type Provider Facility Loc./Unit Complaint [id number] 10/04/2019 15:40:00 10/04/2019 23:59: 59 CLS Outpatient ЕЛЕНА ADDIE M [facility] [id number] 06/16/2019 17:50:00 20:37:00 DIS Emergency ALIDAVENSHANITA GOODWIN DO [facility] ER FS HEADACHE [id number] 03/29/2019 16:29:00 19:01:00 DIS Emergency GALINA RUIZ DO [facility] ER FS FACE INJ, CONFUSION [id number] 03/28/2019 18:28:00 19:32:00 DIS Emergency JESSE RAMIREZ MD [facility] ER FS FALL [id number] 02/22/2019 16:32:00 18:22:00 DIS Emergency HUMBLE LERMA MD [facility] ER FS MIGRAINE [id number] 12/31/2018 14:02:00 23:59:59 CLS Outpatient RUSTY WYATT [facility] RAD FS M79.645 [id number] 12/27/2018 18:33:00 19:50:00 DIS Emergency TIFFANIE BERUMEN MD [facility] ER FS MIGRAINE [id number] 11/26/2019 14:42:[address] Outpatient ЕЛЕНА ARNOLD, ADDIE [facility]
== END 2019-11-27 18:32 | disposition home or self-care (01) ==
LOC: EDUNIT# 17:33 → ER FS 17:34
DX: G44.209 Tension-type headache, unspecified, not intractable (principal); Z88.6 Allergy status to analgesic agent; Z88.5 Allergy status to narcotic agent; Z88.8 Allergy status to other drugs, medicaments and biological substances; Z87.820 Personal history of traumatic brain injury
CPT/HCPCS: 99284

== ENCOUNTER → 2020-01-24 | Outpatient (CLI) | payer MEDICARE, OTHER ==
--- NOTE | 2020-01-24 13:57 | Diagnostic Imaging Report ---
Indication: Cough and shortness of breath. Time of exam: 1:13 PM No prior studies are available for comparison. The heart size is normal. The pulmonary vascularity is unremarkable. The lungs are clear. No infiltrate, effusion or pneumothorax is detected. Impression: No acute cardiopulmonary process is detected. Dictated by: Dictated on workstation # [id number]
[2020-01-24 14:05] LABS: HEMATOCRIT 47 % (40-54); HEMOGLOBIN 16.2 G/DL (13.3-17.7); MEAN CORPUSCULAR HEMOGLOBIN 31 PG (25-34); MEAN CORPUSCULAR HGB CONC 35 G/DL (32-36); MEAN CORPUSCULAR VOLUME 88 FL (80-99); MEAN PLATELET VOLUME 9.4 FL (7.4-10.4); PLATELET COUNT 248 10^3/uL (130-400); RED CELL DISTRIBUTION WIDTH 13.3 % (10.0-14.5); WHITE BLOOD COUNT 8.2 10^3/uL (4.3-11.0)
[2020-01-24 14:06] LABS: BASOPHILS # (AUTO) 0.1 10^3/uL (0.0-0.1); BASOPHILS % (AUTO) 1 % (0-10); EOSINOPHILS # (AUTO) 0.4 10^3/uL (0.0-0.3); EOSINOPHILS % (AUTO) 5 % (0-10); LYMPHOCYTES % (AUTO) 25 % (12-44); MONOCYTES # (AUTO) 0.7 X 10^3 (0.0-1.0); MONOCYTES % (AUTO) 8 % (0-12); NEUTROPHILS % (AUTO) 61 % (42-75)
== END ==
LOC: LAB FS 13:05
PROVIDERS: ATTEND Family Medicine
DX: R52 Pain, unspecified (principal); J02.9 Acute pharyngitis, unspecified
CPT/HCPCS: 36415; 71046; 85025; 87635

== ENCOUNTER 2020-01-26 10:44 | Emergency (ER) | payer MEDICARE, OTHER ==
[~2020-01-26] VITALS: Ht 160 cm; Wt 64.3 kg
--- NOTE | 2020-01-26 11:28 | ED Headache ---
General Chief Complaint: Head/Cervical Problems Stated Complaint: MIGRAINE Nursing Triage Note: Patient reports migraine x 2 days without relief Nursing Sepsis Screen: No Definite Risk History of Present Illness Date Seen by Provider: January 26, 2020 Time Seen by Provider: 11:22 Initial Comments Patient with a complaint of 3 days of headache it is been continuous in the left frontotemporal area started out as a typical headache has continued to get worse. Patient state is not the worst headache of his life he's had nausea no vomiting is made worse by standing or lying he's tried his usual home medications including oxycodone without significant relief. He presents for a treatment as old records were reviewed Timing/Duration: other (3 days) Severity/Quality: severe Location: frontal, temporal Prior Headaches/Recent Trauma: frequent headaches Modifying Factors: improves with movement Associated Symptoms: No confusion, No fatigue, No facial pain, No fever/chills, No loss of consciousness; nausea/vomiting; No nasal congestion, No numbness in legs/feet, No stiff neck Allergies and Home Medications Allergies Coded Allergies: topiramate (Verified Allergy, Unknown, 12/27/18) acetaminophen (Unverified Adverse Reaction, Mild, rash, 12/27/18) codeine (Unverified Adverse Reaction, Mild, Nausea and vomiting, 12/27/18) hydrocodone (Unverified Adverse Reaction, Mild, Nausea and vomiting, 12/27/18) Home Medications Ibuprofen 800 Mg Tablet, 800 MG PO Q8H PRN for PAIN-MILD Prescribed by: SHANITA GOODWIN on 06/16/192021 Metoclopramide HCl 10 Mg Tablet, 10 MG PO Q6H Prescribed by: SHANITA GOODWIN on 06/16/192021 Patient Home Medication List Home Medication List Reviewed: Yes Review of Systems Review of Systems Constitutional: no symptoms reported Eyes: No Symptoms Reported Ears, Nose, Mouth, Throat: no symptoms reported Respiratory: short of breath (for several days) Cardiovascular: no symptoms reported Gastrointestinal: nausea Genitourinary: no symptoms reported Musculoskeletal: no symptoms reported Skin: no symptoms reported Psychiatric/Neurological: See HPI Past Peicxjb-Gceqwk-Mhucqg Hx Patient Social History Alcohol Use: Denies Use Recreational Drug Use: No 2nd Hand Smoke Exposure: No Recent Foreign Travel: No Contact w/Someone Who Travel: No Recent Infectious Disease Expo: No Recent Hopitalizations: No Immunizations Up To Date Date of Influenza Vaccine: May 16, 2018 Seasonal Allergies Seasonal Allergies: Yes Past Medical History Surgeries: Yes (heart cath, colonoscopy) Respiratory: Yes Asthma, Sleep Apnea Cardiac: Yes Hypertension Neurological: Yes (Hx of Subarachnoid) Headaches /Migraines, Traumatic Brain Injury Sexually Transmitted Disease: No Genitourinary: No Gastrointestinal: No Musculoskeletal: No Endocrine: No HEENT: No Cancer: No Psychosocial: No Integumentary: No Blood Disorders: No Physical Exam Vital Signs Vital Signs - First Documented 01/26/20 10:57 Temp 36.0 Pulse 70 Resp 18 B/P (MAP) 136/74 (94) Pulse Ox 98 Capillary Refill : Less Than 3 Seconds Height, Weight, BMI Height: 5'3.00" Weight: 138lbs. oz. 62.744019rd; 25.00 BMI Method:Stated General Appearance: WD/WN, mild distress HEENT: PERRL/EOMI, normal ENT inspection, TMs normal, pharynx normal, other (funduscopic exam normal bilaterally tolerated without pain) Neck: non-tender, full range of motion (chin to chest normal), supple Cardiovascular: regular rate, rhythm, no edema, no murmur Respiratory: chest non-tender, lungs clear, normal breath sounds Gastrointestinal: normal bowel sounds, non tender Extremities: normal range of motion, non-tender Psychiatric: alert, oriented x 3, depressed affect Crainal Nerves: normal hearing, normal speech, PERRL; No abnormal eye position, No abnormal speech, No facial asymmetry Motor/Sensory: no motor deficit, no sensory deficit (patient able to walk turn and sit unassisted with normal balance) Skin: normal color, warm/dry Progress/Results/Core Measures Results/Orders My Orders Orders - FLOR MONTOYA DO Ketorolac Injection (Toradol Injection) (01/26/20 11:30) Metoclopramide Injection (Reglan Injecti (01/26/20 11:30) Diphenhydramine Injection (Benadryl Inje (01/26/20 11:30) Ed Iv/Invasive Line Start (01/26/20 11:17) Medications Given in ED Current Medications Medications Dose Ordered Sig/Hao Route Start Time Stop Time Status Last Admin Dose Admin Diphenhydramine HCl 25 mg ONCE ONCE IVP 01/26/20 11:30 01/26/20 11:31 DC 01/26/20 11:39 25 MG Ketorolac Tromethamine 30 mg ONCE ONCE IVP 01/26/20 11:30 01/26/20 11:31 DC 01/26/20 11:40 30 MG Metoclopramide HCl 10 mg ONCE ONCE IVP 01/26/20 11:30 01/26/20 11:31 DC 01/26/20 11:40 10 MG Vital Signs/I&O 01/26/20 10:57 Temp 36.0 Pulse 70 Resp 18 B/P (MAP) 136/74 (94) Pulse Ox 98 Blood Pressure Mean: 94 Progress Progress Note : Time: 11:26 Progress Note Patient presents with what appears to be chronic pain issues. There is no evidence red flags of serious intracranial pathology. Plan will be a routine migraine management symptomatic improvement discharge home Departure Communication (Admissions) [id number] patient is feeling much better headache is resolved feels good enough he r equests to be discharged Impression Primary Impression: Chronic headaches Disposition: 01 HOME, SELF-CARE Condition: Stable Departure-Patient Inst. Referrals: ADDIE CHRISTIANSEN MD (PCP/Family) Primary Care Physician Next 24-48 hours Patient Instructions: Chronic Neck Pain (DC), Headache, Adult FLOR MONTOYA DO January 26, 2020 11:28
[2020-01-26] MEDS ORDERED: KETOROLAC 30 MG/ML VIAL IVP ONE (11:30)
[2020-01-26] MEDS ORDERED: METOCLOPRAMIDE INJ 10 MG/2 ML (REGLAN) IVP ONE (11:30)
[2020-01-26] MEDS ORDERED: diphenhydrAMINE 50 MG/ML INJ (BENADRYL) IVP ONE (11:30)
--- OUTSIDE RECORDS SUMMARY | 2020-01-26 11:46 | XMS REPORT | Continuity of Care Document ---
Author Organization Unknown Address Unknown Phone Unavailable Allergies Active Description Code Type Severity Reaction Onset Reported/Identified Relationship to Patient Clinical Status Yes acetaminophen [id number] Remberto g Allergy Mild rash 12/27/2018 Yes codeine [id number] Drug Allergy Mild Nausea and vomi 12/27/2018 Yes hydrocodone [id number] Drug Aller gy Mild Nausea and vomi 12/27/2018 Yes topiramate [id number] Drug Allerg y Unknown N/A 12/27/2018 Medications [...] HEADACHE 03/29/2019 GALINA RUIZ DO Ot Z79.82 ALF (CURRENT) USE OF ASPIRIN 03/29/2019 GALINA RUIZ [...] HEADACHE 04/05/2019 GALINA RUIZ DO Ot 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 Results Test [...] Status Pt. Type Provider Facility Loc./Unit Complaint [id number] 10/04/2019 15:40:00 10/04/2019 23:59: 59 CLS Outpatient ADDIE CHRISTIANSEN [facility] [id number] 11/26/2019 14:42:00 23:59:59 CLS Outpatient ЕЛЕНА ARNOLD, ADDIE Chapman [facility] LABNPT M54.5 [id number] 06/16/2019 17:50:00 20:37:00 DIS Emergency ROVENSTROGELIO DOSHANITA [facility] ER FS HEADACHE [id number] 03/29/2019 16:29:00 19:01:00 DIS Emergency SARA DO, GALINA M [facility] ER FS FACE INJ, CONFUSION [id number] 03/28/2019 18:28:00 19:32:00 DIS Emergency JAMES ARNOLD, JESSE Davies [facility] ER FS FALL [id number] 02/22/2019 16:32:00 18:22:00 DIS Emergency MARIA GUADALUPE ARNOLD, HUMBLE Saha [facility] ER FS MIGRAINE [id number] 12/31/2018 14:02:00 23:59:59 CLS Outpatient RUSTY WYATT [facility] RAD FS M79.645 [id number] 12/27/2018 18:33:00 19:50:00 DIS Emergency TIFFANIE BERUMEN MD Via [facility] ER FS MIGRAINE [id number] 01/24/2020 13:05:[address] Outpatient ЕЛЕНА ARNOLD, ADDIE Chapman [facility] LAB FS COUGH,SOB [id number] 11/27/2019 17:34:00 Document Registration
[2020-01-26 12:46] VITALS: BP 136/74
== END 2020-01-26 12:47 | disposition home or self-care (01) ==
LOC: EDUNIT# 10:44 → ER FS 10:48
DX: R51 Headache (principal); Z88.5 Allergy status to narcotic agent; Z88.6 Allergy status to analgesic agent; Z88.8 Allergy status to other drugs, medicaments and biological substances; Z87.820 Personal history of traumatic brain injury; Z86.69 Personal history of other diseases of the nervous system and sense organs; Z95.9 Presence of cardiac and vascular implant and graft, unspecified

== ENCOUNTER 2020-07-01 14:33 | Emergency (ER) | payer MEDICARE, OTHER ==
[~2020-07-01] VITALS: Ht 160 cm; Wt 64.3 kg
[2020-07-01] MEDS ORDERED: ONDANSETRON 4 MG (ZOFRAN) ORAL DISSOLVE TAB PO STA (14:58)
[2020-07-01] MEDS ORDERED: KETOROLAC 60 MG/2 ML VIAL IM ONE (15:00)
[2020-07-01] MEDS ORDERED: ORPHENADRINE 60 MG/2 ML (NORFLEX) AMP (ED ONLY) IM ONE (15:00)
--- NOTE | 2020-07-01 15:04 | ED Headache ---
General Chief Complaint: Head/Cervical Problems Stated Complaint: HEADACHE Source: patient Exam Limitations: no limitations History of Present Illness Date Seen by Provider: Jul 01, 2020 Time Seen by Provider: 14:41 Initial Comments 64-year-old male with a chief complaint of global headache. Patient states this headache is quite similar to previous chronic headaches. Patient states that he has some nausea without vomiting. He states that the light is hurting his eyes. Patient states the headache is primarily located at the top of his head but is all over. Denies any sinusitis type symptoms. States that he last took his home medications, one half of an oxycodone tablet at 5 AM this morning. He had taken his routine medications the day previous which include oxycodone, tizanidine, Benadryl and Phenergan. He had minimal relief of his symptoms. He states his head continued to hurt all night. Denies that this headache is any different than his usual. Denies any numbness, weakness, confusion. States that he is having some paresthesias in his face which is also consistent with chronic migraine type headaches. All other review of systems reviewed and negative except as stated. Timing/Duration: 24 hours Severity/Quality: severe, constant, pressure Location: global Prior Headaches/Recent Trauma: no recent headache/trauma, chronic headaches Modifying Factors: improves with exposure to light (worsens) Associated Symptoms: nausea/vomiting (nausea without vomiting) Allergies and Home Medications Allergies Coded Allergies: topiramate (Verified Allergy, Unknown, 12/27/18) acetaminophen (Unverified Adverse Reaction, Mild, rash, 12/27/18) codeine (Unverified Adverse Reaction, Mild, Nausea and vomiting, 12/27/18) hydrocodone (Unverified Adverse Reaction, Mild, Nausea and vomiting, 12/27/18) Home Medications Ibuprofen 800 Mg Tablet, 800 MG PO Q8H PRN for PAIN-MILD Prescribed by: SHANITA GOODWIN on 06/16/192021 Metoclopramide HCl 10 Mg Tablet, 10 MG PO Q6H Prescribed by: SHANITA GOODWIN on 06/16/192021 Patient Home Medication List Home Medication List Reviewed: Yes Review of Systems Review of Systems Constitutional: no symptoms reported Eyes: Photophobia Ears, Nose, Mouth, Throat: no symptoms reported Respiratory: no symptoms reported Cardiovascular: no symptoms reported Gastrointestinal: no symptoms reported Genitourinary: no symptoms reported Musculoskeletal: no symptoms reported Skin: no symptoms reported Psychiatric/Neurological: Headache, Paresthesia All Other Systems Reviewed Negative Unless Noted: Yes Past Npyzyrj-Cegmrn-Hdlkjn Hx Patient Social History Alcohol Use: Denies Use Recreational Drug Use: No Smoking Status: Never a Smoker 2nd Hand Smoke Exposure: No Recent Hopitalizations: No Physical Abuse: No Sexual Abuse: No Mistreated: No Fear: No Immunizations Up To Date Date of Influenza Vaccine: May 16, 2018 Seasonal Allergies Seasonal Allergies: Yes Past Medical History Surgeries: Yes (heart cath, colonoscopy) Respiratory: Yes Asthma, Sleep Apnea Cardiac: Yes Hypertension Neurological: Yes (Hx of Subarachnoid) Headaches /Migraines, Traumatic Brain Injury Sexually Transmitted Disease: No Genitourinary: No Gastrointestinal: No Musculoskeletal: No Endocrine: No HEENT: No Cancer: No Psychosocial: No Integumentary: No Blood Disorders: No Physical Exam Vital Signs Capillary Refill : Height, Weight, BMI Height: 5'3.00" Weight: 138lbs. oz. 62.400266fn; 25.00 BMI Method:Stated General Appearance: WD/WN, mild distress HEENT: PERRL/EOMI Neck: full range of motion (no meningismus), supple, normal inspection Cardiovascular: regular rate, rhythm Respiratory: lungs clear, normal breath sounds, no respiratory distress, no accessory muscle use Gastrointestinal: normal bowel sounds Extremities: normal range of motion, normal inspection, no pedal edema, no calf tenderness Psychiatric: alert, oriented x 3, depressed affect Crainal Nerves: normal hearing, normal speech, PERRL Coordination/Gait: normal finger to nose, negative Romberg's sign Motor/Sensory: no motor deficit, no sensory deficit, no pronator drift Skin: normal color, warm/dry Progress/Results/Core Measures Results/Orders My Orders Orders - CHI BOJORQUEZ MD Ondansetron Oral Dissolve Tab (Zofran (07/01/20 14:58) Ketorolac Injection (Toradol Injection) (07/01/20 15:00) Orphenadrine Inj (Ed Only) (Norflex Inje (07/01/20 15:00) Medications Given in ED Current Medications Medications Dose Ordered Sig/Hao Route Start Time Stop Time Status Last Admin Dose Admin Ketorolac Tromethamine 30 mg ONCE ONCE IM 07/01/20 15:00 07/01/20 15:01 DC 07/01/20 15:11 30 MG Orphenadrine Citrate 60 mg ONCE ONCE IM 07/01/20 15:00 07/01/20 15:01 DC 07/01/20 15:11 60 MG Progress Progress Note : Time: 15:01 Progress Note 64-year-old male with a long history of chronic migraines. Treated by his primary care physician with oxycodone, tizanidine, Phenergan. Patient states this headache is not the worst of his life. Per review of the medical record he is routinely treated with Toradol, Benadryl occasionally Phenergan occasionally steroids. Patient is nauseated without vomiting. Last home medication use was around 5:00 this morning. Patient states that he has had 3 urgent care visits in 3 weeks for similar headaches. He states that he has an appointment with his primary care physician this coming Friday, 3 days from now to discuss further options for headache treatment. Patient is counseled on overuse of medications causing rebound headaches. He verbalizes understanding. Patient will be treated here in the emergency department with 60 of Norflex IM, 30 of Toradol IM and some oral Zofran. Departure Impression Primary Impression: Headache Qualified Codes: G44.59 - Other complicated headache syndrome Disposition: HOME, SELF-CARE Condition: Stable Departure-Patient Inst. Decision time for Depature: 15:33 Referrals: ADDIE CHRISTIANSEN MD (PCP/Family) Primary Care Physician Patient Instructions: Headache, Adult (DC) Add. Discharge Instructions: Continue your routine headache regimen at home. Please keep your follow up with your primary care doctor on Friday. Return to the ER for any worsening, change in symptoms that are severe or other concerns. All discharge instructions reviewed with patient and/or family. Voiced understanding. CHI BOJORQUEZ MD Jul 01, 2020 15:04
[2020-07-01 15:45] VITALS: BP 138/84
== END 2020-07-01 15:45 | disposition home or self-care (01) ==
LOC: EDUNIT# 14:33 → ER FS 14:34
DX: R51.9 Headache, unspecified (principal); Z20.828 Contact with and (suspected) exposure to other viral communicable diseases; Z87.820 Personal history of traumatic brain injury; Z88.5 Allergy status to narcotic agent; Z88.6 Allergy status to analgesic agent; Z88.8 Allergy status to other drugs, medicaments and biological substances
CPT/HCPCS: 99284

== ENCOUNTER → 2020-07-13 | Outpatient (CLI) | payer MEDICARE, OTHER ==
--- NOTE | 2020-07-13 09:31 | Diagnostic Imaging Report ---
PROCEDURE: MR imaging cervical spine without contrast. TECHNIQUE: Multiplanar, multisequence MR imaging of the cervical spine was performed without contrast. INDICATION: Chronic neck pain There are no prior MRI examinations available for comparison. The CT cervical spine exam performed on 03/29/2019 noted reversal of the normal lordosis of the cervical spine and mild to moderate degenerative disc and bony disease in the lower cervical spine. On this study, the degenerative disc and bony disease in the lower cervical spine is again evident. Specifically, there is desiccation and narrowing of the disc spaces at C5-C6 and to a lesser degree C4-C5. There is also slight anterior translation of C4 with respect to C5. The axial images to the C5-C6 level do show that there is narrowing of the neural foramen on the right due to a disc osteophyte complex. There is no high-grade central stenosis identified at this level however. The AP diameter thecal sac is narrowed to 8.9 mm however. At the C4-C5 level there is disc bulge centrally which flattens the ventral aspect of the thecal sac and narrows the AP diameter to 7.9 mm. There is mild neural foraminal narrowing bilaterally at this level as well. At the C6-7 level there is also broad-based disc bulge. The AP diameter thecal sac is narrowed to 8.6 mm. There does not appear to be any significant neural foraminal narrowing at this level however. At the C3-C4 level there is a disc bulge centrally which narrows the AP diameter of the thecal sac to 8.9 mm. There is no neural foraminal narrowing at this level either. The remainder of the cervical spine is unremarkable for spinal stenosis or nerve root encroachment. There is no abnormal signal arising from the cord or other vertebral bodies to indicate an acute abnormality. There is no sign of a paraspinal mass. The carotid and vertebral flow voids are evident bilaterally. The left vertebral artery is dominant. IMPRESSION: 1. There is degenerative disc and bone disease involving the cervical spine at multiple levels as described above. The C4-C5, C5-C6 and C6-C7 levels are the most severely affected. 2. There is no acute bony abnormality identified and there is no sign of a cord lesion. Dictated by: Dictated on workstation # [id number]
== END ==
LOC: RAD 08:00
PROVIDERS: ATTEND Family Medicine
DX: M50.223 Other cervical disc displacement at C6-C7 level (principal); M50.221 Other cervical disc displacement at C4-C5 level; M50.220 Other cervical disc displacement, mid-cervical region, unspecified level; M50.323 Other cervical disc degeneration at C6-C7 level; M50.322 Other cervical disc degeneration at C5-C6 level; M50.321 Other cervical disc degeneration at C4-C5 level; M48.02 Spinal stenosis, cervical region
CPT/HCPCS: 72141

== ENCOUNTER → 2020-10-27 | Outpatient (CLI) | payer MEDICARE, OTHER | LOC: LAB FS 10:10 | PROVIDERS: ATTEND Orthopaedic Surgery Orthopaedic Surgery of the Spine | DX: Z01.812 Encounter for preprocedural laboratory examination (principal); Z20.822 Contact with and (suspected) exposure to COVID-19 | CPT/HCPCS: 87635 ==

== ENCOUNTER 2021-04-06 09:19 | Emergency (ER) | payer MEDICARE, OTHER ==
[~2021-04-06] VITALS: Ht 160 cm; Wt 59.4 kg
--- NOTE | 2021-04-06 09:31 | ED Fever ---
History of Present Illness General Stated Complaint: LOW BP; FEVER; HEADACHE; COUGH; LOSS OF TASTE/SMEL History of Present Illness Date Seen by Provider: Apr 06, 2021 Time Seen by Provider: 09:25 Initial Comments 65-year-old male presents with cough, fever, headache, body aches, mild chest tightness, loss of taste and smell. Patient reports that the symptoms started 3 to 4 days ago. He went to his primary today sent in to the ER for further evaluation because he had a low blood pressure. Patient denies shortness of breath. No nausea vomiting or diarrhea Allergies and Home Medications Allergies Coded Allergies: topiramate (Verified Allergy, Unknown, 12/27/18) acetaminophen (Unverified Adverse Reaction, Mild, rash, 12/27/18) codeine (Unverified Adverse Reaction, Mild, Nausea and vomiting, 12/27/18) hydrocodone (Unverified Adverse Reaction, Mild, Nausea and vomiting, 12/27/18) Home Medications Ibuprofen 800 Mg Tablet, 800 MG PO Q8H PRN for PAIN-MILD Prescribed by: SHANITA GOODWIN on 06/16/192021 Metoclopramide HCl 10 Mg Tablet, 10 MG PO Q6H Prescribed by: SHANITA GOODWIN on 06/16/192021 Patient Home Medication List Home Medication List Reviewed: Yes Review of Systems Review of Systems Constitutional: No chills; fever, malaise EENTM: see HPI Respiratory: cough; No short of breath, No wheezing Cardiovascular: No chest pain, No palpitations Gastrointestinal: No abdominal pain, No nausea, No vomiting Musculoskeletal: see HPI Skin: no symptoms reported Psychiatric/Neurological: No Symptoms Reported Hematologic/Lymphatic: No Symptoms Reported Immunological/Allergic: no symptoms reported Past Qfeeafm-Gftzzi-Zqoelg Hx Seasonal Allergies Seasonal Allergies: Yes Past Medical History Surgeries: Yes (heart cath, colonoscopy) Respiratory: Yes Asthma, Sleep Apnea Cardiac: Yes Hypertension Neurological: Yes (Hx of Subarachnoid) Headaches /Migraines, Traumatic Brain Injury Sexually Transmitted Disease: No Genitourinary: No Gastrointestinal: No Musculoskeletal: No Endocrine: No HEENT: No Cancer: No Psychosocial: No Integumentary: No Blood Disorders: No Physical Exam Vital Signs - First Documented Capillary Refill : Height: 5'3.00" Weight: 138lbs. oz. 62.236431ta; 25.00 BMI Method:Stated General Appearance: no apparent distress HEENT: PERRL/EOMI Neck: full range of motion, supple Respiratory: lungs clear, normal breath sounds Cardiovascular: normal peripheral pulses, regular rate, rhythm Gastrointestinal: non tender, soft Neurologic/Psychiatric: alert, normal mood/affect, oriented x 3 Skin: normal color, warm/dry Focused Exam Lactate Level 04/06/21 09:37: Lactic Acid Level 1.38 Lactic Acid Level Laboratory Tests Test 04/06/21 09:37 Lactic Acid Level 1.38 MMOL/L (0.50-2.00) Progress/Results/Core Measures Suspected Sepsis SIRS Temperature: Pulse: Respiratory Rate: Laboratory Tests 04/06/21 09:37: White Blood Count 5.8 Blood Pressure / Mean: 04/06/21 09:37: Lactic Acid Level 1.38 Laboratory Tests 04/06/21 09:37: Creatinine 1.83H, Platelet Count 180, Total Bilirubin 0.4 Results/Orders Lab Results Laboratory Tests Test 04/06/21 09:36 04/06/21 09:37 Range/Units White Blood Count 5.8 4.3-11.0 10^3/uL Red Blood Count 5.14 4.35-5.85 10^6/uL Hemoglobin 15.4 13.3-17.7 G/DL Hematocrit 45 40-54 % Mean Corpuscular Volume 88 80-99 FL Mean Corpuscular Hemoglobin 30 25-34 PG Mean Corpuscular Hemoglobin Concent 34 32-36 G/DL Red Cell Distribution Width 14.3 10.0-14.5 % Platelet Count 180 130-400 10^3/uL Mean Platelet Volume 9.7 7.4-10.4 FL Immature Granulocyte % (Auto) 0 % Neutrophils (%) (Auto) 51 42-75 % Lymphocytes (%) (Auto) 35 12-44 % Monocytes (%) (Auto) 13 H 0-12 % Eosinophils (%) (Auto) 0 0-10 % Basophils (%) (Auto) 1 0-10 % Neutrophils # (Auto) 2.9 1.8-7.8 X 10^3 Lymphocytes # (Auto) 2.0 1.0-4.0 X 10^3 Monocytes # (Auto) 0.8 0.0-1.0 X 10^3 Eosinophils # (Auto) 0.0 0.0-0.3 10^3/uL Basophils # (Auto) 0.1 0.0-0.1 10^3/uL Immature Granulocyte # (Auto) 0.0 0.0-0.1 10^3/uL Sodium Level 133 L 135-145 MMOL/L Potassium Level 5.3 H 3.6-5.0 MMOL/L Chloride Level 94 L 98-107 MMOL/L Carbon Dioxide Level 24 21-32 MMOL/L Anion Gap 15 H 5-14 MMOL/L Blood Urea Nitrogen 26 H 7-18 MG/DL Creatinine 1.83 H 0.60-1.30 MG/DL Estimat Glomerular Filtration Rate 37 BUN/Creatinine Ratio 14 Glucose Level 104 70-105 MG/DL Lactic Acid Level 1.38 0.50-2.00 MMOL/L Calcium Level 9.3 8.5-10.1 MG/DL Corrected Calcium 9.2 8.5-10.1 MG/DL Total Bilirubin 0.4 0.1-1.0 MG/DL Aspartate Amino Transf (AST/SGOT) 38 H 5-34 U/L Alanine Aminotransferase (ALT/SGPT) 19 0-55 U/L Alkaline Phosphatase 43 40-136 U/L Troponin I < 0.30 <0.30 NG/ML Total Protein 7.3 6.4-8.2 GM/DL Albumin 4.1 3.2-4.5 GM/DL Micro Results Microbiology 04/06/21 Influenza Types A,B Antigen (LORENZO) - Final, Complete My Orders Orders - KIRILL JIMENEZ DO Cbc With Automated Diff (04/06/21 09:32) Comprehensive Metabolic Panel (04/06/21 09:32) Lactic Acid Analyzer (04/06/21 09:32) Influenza A And B Antigens (04/06/21 09:32) Covid 19 Inhouse Test (04/06/21 09:32) Troponin I Fs (04/06/21 09:32) Ekg Tracing (04/06/21 09:32) Monitor-Rhythm Ecg Trace Only (04/06/21 09:32) Chest 1 View Ap/Pa Only (04/06/21 09:32) Lactated Ringers (Lr 1000 Ml Iv Solution (04/06/21 09:32) Ketorolac Injection (Toradol Injection) (04/06/21 12:14) Vital Signs/I&O 04/06/21 04/06/21 04/06/21 09:22 09:22 12:32 Temp 36.9 Pulse 66 64 Resp 21 18 B/P (MAP) 113/81 (92) 131/80 Pulse Ox 96 97 O2 Delivery Room Air Room Air Room Air Capillary Refill : Progress Note : Progress Note Patient symptoms are consistent with coronavirus. Discussed with him supportive care. He needs to follow-up with her primary care provider as needed or return to ER symptoms suddenly worsen. At this time he does not have any indications for admission. Patient stable and discharged ECG Initial ECG Impression Date: Apr 06, 2021 Initial ECG Impression Time: 09:41 Initial ECG Rate: 66 Initial ECG Rhythm: Normal Sinus Initial ECG Intervals: Normal Initial ECG Impression: Normal Diagnostic Imaging Diagonstic Imaging: Xray Plain Films/CT/US/NM/MRI: chest Comments Date of Exam:04/06/21 CHEST 1 VIEW AP/PA ONLY HISTORY: Fever and cough. COMPARISON: 01/24/2020. TECHNIQUE: Frontal view of the chest. FINDINGS: Lung volumes are large. No focal consolidation is seen. There is no pleural effusion or pneumothorax. The cardiac silhouette is normal in size. IMPRESSION: Large lung volumes with no acute pulmonary abnormalities seen. Reviewed: Reviewed by Me, Reviewed/Discussed Departure Impression Primary Impression: COVID-19 Disposition: 01 HOME, SELF-CARE Condition: Stable Departure-Patient Inst. Referrals: ADDIE CHRISTIANSEN MD (PCP/Family) Primary Care Physician Patient Instructions: COVID-19 ED Add. Discharge Instructions: Drink plenty of fluid Follow-up with your primary care provider as needed KIRILL JIMENEZ DO Apr 06, 2021 09:31
[2021-04-06] MEDS ORDERED: LACTATED RINGERS 1,000 ML IV STA (09:32)
[2021-04-06 09:47] LABS: HEMATOCRIT 45 % (40-54); HEMOGLOBIN 15.4 G/DL (13.3-17.7); MEAN CORPUSCULAR HEMOGLOBIN 30 PG (25-34); MEAN CORPUSCULAR HGB CONC 34 G/DL (32-36); MEAN CORPUSCULAR VOLUME 88 FL (80-99); MEAN PLATELET VOLUME 9.7 FL (7.4-10.4); PLATELET COUNT 180 10^3/uL (130-400); WHITE BLOOD COUNT 5.8 10^3/uL (4.3-11.0)
[2021-04-06 09:48] LABS: BASOPHILS # (AUTO) 0.1 10^3/uL (0.0-0.1); BASOPHILS % (AUTO) 1 % (0-10); EOSINOPHILS % (AUTO) 0 % (0-10); LYMPHOCYTES % (AUTO) 35 % (12-44); MONOCYTES # (AUTO) 0.8 X 10^3 (0.0-1.0); MONOCYTES % (AUTO) 13 % (0-12); NEUTROPHILS # (AUTO) 2.9 X 10^3 (1.8-7.8); NEUTROPHILS % (AUTO) 51 % (42-75)
--- NOTE | 2021-04-06 10:15 | Diagnostic Imaging Report ---
HISTORY: Fever and cough. COMPARISON: 01/24/2020. TECHNIQUE: Frontal view of the chest. FINDINGS: Lung volumes are large. No focal consolidation is seen. There is no pleural effusion or pneumothorax. The cardiac silhouette is normal in size. IMPRESSION: Large lung volumes with no acute pulmonary abnormalities seen. Dictated by: Dictated on workstation # [id number]
[2021-04-06 10:16] LABS: ALANINE AMINOTRANSFERASE 19 U/L (0-55); ALBUMIN 4.1 GM/DL (3.2-4.5); ALKALINE PHOSPHATASE 43 U/L (40-136); BILIRUBIN,TOTAL 0.4 MG/DL (0.1-1.0); BUN/CREATININE RATIO 14; CALCIUM 9.3 MG/DL (8.5-10.1); CARBON DIOXIDE 24 MMOL/L (21-32); CHLORIDE 94 MMOL/L (98-107); CREATININE SERUM 1.83 MG/DL (0.60-1.30); GFR ESTIMATED 37; GLUCOSE 104 MG/DL (70-105); POTASSIUM 5.3 MMOL/L (3.6-5.0); SODIUM 133 MMOL/L (135-145); TOTAL PROTEIN 7.3 GM/DL (6.4-8.2)
[2021-04-06] MEDS ORDERED: KETOROLAC 30 MG/ML VIAL IVP STA (12:14)
[2021-04-06 12:32] VITALS: BP 131/80
== END 2021-04-06 12:32 | disposition home or self-care (01) ==
LOC: EDUNIT# 09:19 → ER FS 09:23
DX: U07.1 COVID-19 (principal); I10 Essential (primary) hypertension; G47.30 Sleep apnea, unspecified; Z87.820 Personal history of traumatic brain injury
CPT/HCPCS: 36415; 71045; 80053; 83605; 84484; 85025; 87636; 87804; 93005; 93041; 96361; 96374

== ENCOUNTER 2021-04-12 10:10 | Outpatient (CLI) | payer MEDICARE, OTHER ==
[~2021-04-12] VITALS: Ht 160 cm; Wt 59.4 kg
[2021-04-12 10:05] VITALS: BP 112/72
[2021-04-12] MEDS ORDERED: CASIRIVIMAB/IMDEVIMAB 1,200 MG in NS (IVPB) 250 ML IV ONE (10:15)
[2021-04-12] MEDS ORDERED: diphenhydrAMINE 50 MG/ML INJ (BENADRYL) IV PRN (10:15)
[2021-04-12] MEDS ORDERED: EPINEPHrine INJECTION 1 MG/ML AMP IM PRN (10:15)
[2021-04-12 10:37] VITALS: BP 112/72
== END 2021-04-12 12:08 ==
LOC: INFUSION 10:10
PROVIDERS: ATTEND Family Medicine
DX: Z23 Encounter for immunization (principal); U07.1 COVID-19

== ENCOUNTER → 2021-08-21 | Outpatient (CLI) | payer MEDICARE, OTHER ==
[2021-08-21 15:11] LABS: BILIRUBIN,URINE NEGATIVE (NEGATIVE); CLARITY,URINE CLEAR; COLOR,URINE DARK YELLOW; GLUCOSE, URINE (UA) NEGATIVE (NEGATIVE); KETONES,URINE NEGATIVE (NEGATIVE); LEUKOCYTE ESTERASE ,URINE NEGATIVE (NEGATIVE); NITRITE,URINE NEGATIVE (NEGATIVE); PROTEIN,URINE 2+ (NEGATIVE)
[2021-08-21 15:15] LABS: BACTERIA,URINE NEGATIVE /HPF; SQUAMOUS EPITHELIAL CELL,UR 0-2 /HPF; WBC,URINE 0-2 /HPF
== END ==
LOC: LABNPT 14:56
PROVIDERS: ATTEND Family Medicine
DX: R80.9 Proteinuria, unspecified (principal)
CPT/HCPCS: 81000

== ENCOUNTER → 2021-12-04 | Outpatient (CLI) | payer MEDICARE, OTHER ==
--- NOTE | 2021-12-04 19:17 | Diagnostic Imaging Report ---
CLINICAL INDICATION: Patient has history of previous cervical spine surgery with hardware. Chronic spine pain and problems. EXAM: MRI of the cervical spine performed without IV contrast. Sequences include sagittal T2, sagittal T1, sagittal T2 fat-sat, sagittal STIR, and axial T2. COMPARISON: MRI of the cervical spine without contrast dated 07/13/2020. FINDINGS: There are interval postop changes with placement of C4 through C7 anterior cervical disc fusion. Limited visualization of the posterior fossa is unremarkable. Cervical spinal cord has normal cord caliber. There is a small area of high T2 signal centrally within the cervical cord seen at the upper C6 level, which is stable. This area measures 1 mm or less in axial dimension. The remainder of the cervical cord is unremarkable. There is no significant paraspinal soft tissue abnormality. C1-C2: There are degenerative spurs involving the atlanto-odontoid interval anteriorly. C2-C3: There is vauv-so-hzjrvicn left facet arthropathy and mild right facet arthropathy. Stable mild left neural foramen narrowing and moderate right neural foramen narrowing. There is no significant central canal stenosis. C3-C4: There is mild bilateral facet arthropathy. There is mild bilateral facet arthropathy. There is wcde-cx-sukfhjpk right neural foramen narrowing and no significant left neural foramen narrowing which has not significantly changed. There is mild central canal narrowing which has slightly improved in the interim. There is no significant posterior disc bulge. C4-C5: There is interval resection of the previously seen disc herniations. There is now no significant central canal stenosis. There is no significant neural foramen narrowing. C5-C6: There is interval resection of the previously seen disc bulge. There is now no significant central canal narrowing. There is no significant neural foramen narrowing. C6-C7: There is mild left facet arthropathy and hwty-px-fowunihi left neural foramen narrowing again noted. There is no significant right neural foramen narrowing. There is no significant central canal stenosis. C7-T1: There is mild bilateral facet arthropathy. There is kveq-qg-ehjbwkmm left neural foramen narrowing again noted. There is no significant central canal or right neural foramen narrowing. IMPRESSION: 1: There are interval postop changes with C4 through C7 anterior cervical disc fusion hardware. There is interval improved central canal stenosis at these levels post discectomy. 2: Otherwise, the remainder of the cervical spine degenerative changes have not significantly changed. 3: Stable nonspecific small area of intramedullary high T2 signal involving the cervical cord at the upper C6 level, which does not fit criteria for syrinx. Dictated by: Dictated on workstation # [id number]
== END ==
LOC: RAD 14:45
PROVIDERS: ATTEND Orthopaedic Surgery Orthopaedic Surgery of the Spine
DX: M47.812 Spondylosis without myelopathy or radiculopathy, cervical region (principal); M47.813 Spondylosis without myelopathy or radiculopathy, cervicothoracic region; M48.02 Spinal stenosis, cervical region; M48.03 Spinal stenosis, cervicothoracic region; Z98.1 Arthrodesis status
CPT/HCPCS: 72141

== ENCOUNTER → 2022-08-30 | Outpatient (CLI) | payer MEDICARE, OTHER ==
--- NOTE | 2022-08-30 16:45 | Diagnostic Imaging Report ---
INDICATION: SOB COMPARISON: 04/06/2021 FINDINGS: Frontal and lateral views of the chest demonstrate normal heart size and pulmonary vascularity. The lungs are clear. There are no signs of infiltrate, pleural effusions or pneumothoraces. The visualized osseous structures show no acute abnormalities. IMPRESSION: 1. No acute process. No signs of infiltrates, effusions or pneumothoraces. Dictated by: Dictated on workstation # [id number]
== END ==
LOC: RAD FS 10:55
PROVIDERS: ATTEND Registered Nurse Emergency
DX: R06.02 Shortness of breath (principal); R05.9 Cough, unspecified
CPT/HCPCS: 71046

== ENCOUNTER 2022-09-03 17:35 | Emergency (ER) | payer MEDICARE, OTHER ==
--- NOTE | 2022-09-03 17:42 | ED Integumentary General ---
General Chief Complaint: Laceration Stated Complaint: L THUMB LAC Source: patient Exam Limitations: no limitations History of Present Illness Date Seen by Provider: Sep 03, 2022 Time Seen by Provider: 17:40 Initial Comments 67-year-old male presents to the emergency department today for left thumb injury. He was drilling into metal and the drill bit broke causing a laceration to the extensor surface of his left thumb. No other injuries. He was concerned because there was some "stringy stuff" on the drill bit. Injury happened about 40 minutes prior to arrival. Unclear when his last tetanus shot was. He has numbness immediately around the puncture site but no other. No weakness. Allergies and Home Medications Allergies Coded Allergies: topiramate (Verified Allergy, Unknown, 12/27/18) acetaminophen (Unverified Adverse Reaction, Mild, rash, 12/27/18) codeine (Unverified Adverse Reaction, Mild, Nausea and vomiting, 12/27/18) hydrocodone (Unverified Adverse Reaction, Mild, Nausea and vomiting, 12/27/18) Patient Home Medication List Home Medication List Reviewed: Yes Ibuprofen (Ibuprofen) 800 Mg Tablet, 800 MG PO Q8H PRN for PAIN-MILD Prescribed by: SHANITA GOODWIN on 06/16/192021 Metoclopramide HCl (Reglan) 10 Mg Tablet, 10 MG PO Q6H Prescribed by: SHANITA GOODWIN on 06/16/192021 Review of Systems Review of Systems Constitutional: no symptoms reported EENTM: no symptoms reported Respiratory: no symptoms reported Cardiovascular: no symptoms reported Gastrointestinal: no symptoms reported Genitourinary: no symptoms reported Musculoskeletal: no symptoms reported Skin: other (Left thumb injury) Psychiatric/Neurological: No Symptoms Reported Endocrine: No Symptoms Reported Hematologic/Lymphatic: No Symptoms Reported Past Ddambls-Jpkdtn-Werbhk Hx Patient Social History Tobacco Use?: No Use of E-Cig and/or Vaping dev: No Substance use?: No Alcohol Use?: No Seasonal Allergies Seasonal Allergies: Yes Past Medical History Surgeries: Yes (heart cath, colonoscopy) Respiratory: Yes Asthma, Sleep Apnea Cardiac: Yes Hypertension Neurological: Yes (Hx of Subarachnoid) Headaches /Migraines, Traumatic Brain Injury Sexually Transmitted Disease: No Genitourinary: No Gastrointestinal: No Musculoskeletal: No Endocrine: No HEENT: No Cancer: No Psychosocial: No Integumentary: No Blood Disorders: No Family Medical History Reviewed Nursing Family Hx No Pertinent Family Hx Physical Exam Vital Signs Capillary Refill : General Appearance: WD/WN, no apparent distress HEENT: normal ENT inspection, pharynx normal Neck: non-tender, supple Cardiovascular: regular rate, rhythm, no murmur Respiratory: chest non-tender, lungs clear, normal breath sounds Extremities: normal range of motion, other (Puncture wound to the extensor surface of the left thumb just distal to the PIP. Neurovascular motor and sensory intact.) Neurologic/Psychiatric: alert, normal mood/affect, oriented x 3 Skin: other (Puncture wound as described above) Progress/Results/Core Measures Results/Orders My Orders Orders - YURY GODFREY DO Hand 3 View Left (09/03/22 17:45) Dipht,Pertuss(Acell),Tet Adult (Boostrix (09/03/22 17:45) Departure Communication (Admissions) Patient is hemodynamically stable. Neurovascular motor and sensory intact. X- rays negative. No repairable laceration, puncture wound. Will go and give him antibiotics after it was copiously irrigated and dressed here in the emergency department. Given strict return precautions for infection. States understanding and is discharged in stable condition. Impression Primary Impression: Laceration of left thumb Qualified Codes: S61.012A - Laceration without foreign body of left thumb without damage to nail, initial encounter Disposition: 01 HOME, SELF-CARE Condition: Stable Departure-Patient Inst. Referrals: ADDIE CHRISTIANSEN MD (PCP/Family) Primary Care Physician Patient Instructions: Tetanus Toxoid (Adsorbed), Wound Care Add. Discharge Instructions: Please take the antibiotics as prescribed until they are gone. Use Motrin and Tylenol as needed for pain. Your tetanus was updated here in the emergency department. Return to the emergency department immediately for any redness that is spreading or drainage that looks like pus, fevers. Follow-up with your primary doctor for any nonemergent needs. All discharge instructions reviewed with patient and/or family. Voiced understanding. Scripts Clindamycin HCl (Clindamycin HCl) 300 Mg Capsule 300 MG PO TID for 5 Days, #15 CAP Prov: YURY GODFREY DO 09/03/22 YURY GODFREY DO Sep 03, 2022 17:42
[2022-09-03] MEDS ORDERED: TETANUS,DIPTH,PERTUSS P/F (BOOSTRIX) 0.5 ML VIAL IM ONE (17:45)
[2022-09-03] MEDS ORDERED: CLIN-144 PO (17:50)
[2022-09-03 18:01] VITALS: BP 194/87
--- NOTE | 2022-09-03 18:11 | Diagnostic Imaging Report ---
INDICATION: Laceration to the left thumb. TIME OF EXAM: 5:46 p.m. FINDINGS: Three views of the left hand demonstrate a fracture involving the distal phalanx of the thumb. No displacement is seen. Proximal phalanx is intact. First metacarpal is intact. Soft tissues are unremarkable. IMPRESSION: Fracture at the base of the distal phalanx of the thumb. Dictated by: Dictated on workstation # [id number]
== END 2022-09-03 18:00 | disposition home or self-care (01) ==
LOC: EDUNIT# 17:35 → ER FS 17:36
DX: S61.012A Laceration without foreign body of left thumb without damage to nail, initial encounter (principal); Z23 Encounter for immunization; Z28.310 Unvaccinated for COVID-19; W29.8XXA Contact with other powered hand tools and household machinery, initial encounter
CPT/HCPCS: 73130; 90715

== ENCOUNTER → 2023-03-27 | Outpatient (CLI) | payer MEDICARE, OTHER ==
[~2023-03-27] MED LIST changes: +CLIN-144 PO
== END ==
LOC: ORTHO 13:20
PROVIDERS: ATTEND Orthopaedic Surgery
DX: S83.242A Other tear of medial meniscus, current injury, left knee, initial encounter (principal); S83.412A Sprain of medial collateral ligament of left knee, initial encounter; X58.XXXA Exposure to other specified factors, initial encounter
CPT/HCPCS: 99203

== ENCOUNTER → 2023-04-08 | Outpatient (CLI) | payer MEDICARE, OTHER ==
--- NOTE | 2023-04-08 12:43 | Diagnostic Imaging Report ---
MRI LT LOWER EXT JOINT W/O TECHNIQUE: Multiplanar, multisequence MR imaging of the left knee was performed without contrast. COMPARISON: None available. INDICATION: Left knee pain. FINDINGS: MENISCI Medial meniscus: Normal. Lateral meniscus: Normal. LIGAMENTS ACL: Intact. PCL: Intact. MCL: Mild thickening of the origin of the MCL without associated discontinuities potentially due to low-grade sprain. LCL: The lateral collateral ligamentous complex is intact. EXTENSOR MECHANISM The extensor mechanism is intact. CARTILAGE Medial compartment: Medial compartment articular cartilage is well preserved without focal high-grade chondromalacia. Lateral compartment: The lateral compartment articular cartilage is preserved without high-grade chondromalacia. Patellofemoral compartment: The patellofemoral articular cartilage is well preserved without high-grade chondromalacia. BONE Small region of bone marrow edema are present in the posterior aspect of the lateral tibial plateau and lateral femoral condyle. No macroscopic fracture lines are seen. No osteochondral lesion. SOFT TISSUE No knee effusion or Solis's cyst. IMPRESSION: 1. Low-grade MCL sprain. 2. No meniscal tear. 3. Bone marrow edema in the periphery of the lateral femoral condyle and tibial plateau may be due to bone contusions if there is direct trauma to this region. Otherwise, stress reaction would be the favored source. Dictated by: Dictated on workstation # [id number]
== END ==
LOC: RAD 09:47
PROVIDERS: ATTEND Orthopaedic Surgery
DX: S83.411A Sprain of medial collateral ligament of right knee, initial encounter (principal); X58.XXXA Exposure to other specified factors, initial encounter
CPT/HCPCS: 73721

== ENCOUNTER → 2023-05-07 | Outpatient (CLI) | payer MEDICARE, OTHER | LOC: ORTHO 11:25 | PROVIDERS: ATTEND Orthopaedic Surgery | DX: S83.419A Sprain of medial collateral ligament of unspecified knee, initial encounter (principal); M22.2X2 Patellofemoral disorders, left knee; X58.XXXA Exposure to other specified factors, initial encounter | CPT/HCPCS: 99213 ==